=== PATIENT | female | born 1990 | race Caucasian/White ===

== ENCOUNTER 2020-11-16 07:35 | Outpatient (CLI) | payer OTHER, SELFPAY ==
[2020-11-16 09:24] LABS: Basophils Percent Auto 0.3 % (0.2-1.2); Eosinophils Absolute Auto 0.1 K/mm3 (0-0.3); Eosinophils Percent Auto 0.6 % (0-4.4); Hematocrit 31.9 % (37.0-47.0); Hemoglobin 10.7 g/dL (12.0-15.0); Immature Granulocyte Absolute 0.07 K/mm3 (0.00-0.031); Immature Granulocyte Percent A 0.6 % (0-0.5); Lymphocytes Absolute Auto 1.62 K/mm3 (0.9-3.2); Lymphocytes Percent Auto 13.5 % (18.3-44.2); Mean Corpuscular HGB Conc 33.5 g/dl (32-36); Mean Corpuscular Hemoglobin 30.4 pg (26-34); Mean Corpuscular Volume 90.6 fl (80-100); Mean Platelet Volume 9.8 fl (7.4-10.4); Monocytes Absolute Auto 0.7 K/mm3 (0.1-0.6); Monocytes Percent Auto 5.8 % (2.6-8.5); Neutrophils Absolute Auto 9.5 K/mm3 (1.3-6.7); Neutrophils Percent Auto 79.2 % (45.5-73.1); Platelet Count Result 247 k/mm3 (150-375); Red Blood Count 3.52 M/mm3 (4.2-5.4); Red Cell Distribution Width 13.6 % (11.5-14.5)
[2020-11-16 09:33] LABS: Glucose 1 Hour PP 50gm Dose 125 mg/dL
[2020-11-16 10:06] LABS: Thyroid Stimulating Hormone 0.825 uIU/mL (0.465-4.680)
[2020-11-16 10:14] LABS: Vitamin D 25 Hydroxy 30.8 ng/mL
[2020-11-20 01:30] LABS: Hematocrit 32.6 % (35.0-45.0); Hemoglobin 10.9 g/dL (11.7-15.5); MCH 30.2 pg (27.0-33.0); MCV 90.6 fL (80.0-100.0); RDW 14.2 % (11.0-15.0)
== END 2020-11-16 07:36 | disposition home or self-care (01) ==
PROVIDERS: Visit Provider Student in an Organized Health Care Education/Training Program
DX: Z34.90 Encounter for supervision of normal pregnancy, unspecified, unspecified trimester (principal); Z3A.00 Weeks of gestation of pregnancy not specified
CPT/HCPCS: 36415; 82306; 82947; 83021; 84443; 85025; 86787

== ENCOUNTER 2020-12-17 09:12 | Outpatient (CLI) | payer OTHER, SELFPAY ==
[2020-12-17 10:07] LABS: Basophils Percent Auto 0.2 % (0.2-1.2); Eosinophils Absolute Auto 0.1 K/mm3 (0-0.3); Eosinophils Percent Auto 0.5 % (0-4.4); Hematocrit 33.2 % (37.0-47.0); Hemoglobin 10.9 g/dL (12.0-15.0); Immature Granulocyte Absolute 0.08 K/mm3 (0.00-0.031); Immature Granulocyte Percent A 0.6 % (0-0.5); Lymphocytes Absolute Auto 1.94 K/mm3 (0.9-3.2); Lymphocytes Percent Auto 15.5 % (18.3-44.2); Mean Corpuscular HGB Conc 32.8 g/dl (32-36); Mean Corpuscular Hemoglobin 29.3 pg (26-34); Mean Corpuscular Volume 89.2 fl (80-100); Mean Platelet Volume 9.9 fl (7.4-10.4); Monocytes Absolute Auto 0.7 K/mm3 (0.1-0.6); Monocytes Percent Auto 5.4 % (2.6-8.5); Neutrophils Absolute Auto 9.7 K/mm3 (1.3-6.7); Neutrophils Percent Auto 77.8 % (45.5-73.1); Platelet Count Result 283 k/mm3 (150-375); Red Blood Count 3.72 M/mm3 (4.2-5.4); Red Cell Distribution Width 13.6 % (11.5-14.5); White Blood Count 12.5 K/mm3 (4.5-10.0)
[2020-12-17 11:10] LABS: HIV 1/2 Ab P24 Ag Result Negative (Negative)
[2020-12-17 15:19] LABS: Rapid Plasma Reagin Non-Reactive (NonReactive)
== END 2020-12-17 09:13 | disposition home or self-care (01) ==
LOC: ANHLAB 09:13
PROVIDERS: Visit Provider Student in an Organized Health Care Education/Training Program
DX: Z34.03 Encounter for supervision of normal first pregnancy, third trimester (principal); Z3A.00 Weeks of gestation of pregnancy not specified
CPT/HCPCS: 36415; 85025; 86592; 86703; G0432

== ENCOUNTER 2021-01-05 09:37 | Outpatient (RCR) | payer OTHER, SELFPAY ==
[2021-01-05 10:36] VITALS: BP 121/72; PULSE 72
== END 2021-02-25 09:37 | disposition home or self-care (01) ==
LOC: ANHOBOP 09:37
PROVIDERS: Visit Provider Student in an Organized Health Care Education/Training Program
DX: O36.8330 Maternal care for abnormalities of the fetal heart rate or rhythm, third trimester, not applicable or unspecified (principal); Z3A.36 36 weeks gestation of pregnancy
CPT/HCPCS: 59025

== ENCOUNTER 2021-01-13 05:45 | Inpatient (IN) | payer OTHER, SELFPAY ==
[2021-01-13] VITALS (185 sets, daily range): BP systolic 93–146; BP diastolic 41–97; PULSE 56–123; RESP 16–20; TEMP 36.6–37.4; O2SAT 92–100; BMI 29.1
--- NOTE | 2021-01-13 06:29 | LDADM ---
This patient, Joseline Dietrich, was admitted to Labor/Delivery/Recovery 105 on 01/13/21 at 05:45. Plans for labor, pain management and were discussed with patient. Patient/family oriented to hospital policies and general routines including ID bracelet, bed and alarms, visiting hours, pain management, procedures, bathroom and other care routines, personal items, smoking policy, room service/diet and guest tray routines, security routines, and visiting hours. Patient/Family are encouraged to report perceived risks to care and to ask questions if they do not understand what they are told or what they should do. See OBIX for further documentation.
[2021-01-13 06:42] LABS: Basophils Percent Auto 0.3 % (0.2-1.2); Eosinophils Absolute Auto 0.1 K/mm3 (0-0.3); Eosinophils Percent Auto 0.8 % (0-4.4); Hematocrit 34.4 % (37.0-47.0); Hemoglobin 11.3 g/dL (12.0-15.0); Immature Granulocyte Absolute 0.06 K/mm3 (0.00-0.031); Immature Granulocyte Percent A 0.5 % (0-0.5); Lymphocytes Percent Auto 15.9 % (18.3-44.2); Mean Corpuscular HGB Conc 32.8 g/dl (32-36); Mean Corpuscular Volume 88.4 fl (80-100); Mean Platelet Volume 10.2 fl (7.4-10.4); Monocytes Absolute Auto 0.6 K/mm3 (0.1-0.6); Monocytes Percent Auto 4.8 % (2.6-8.5); Neutrophils Absolute Auto 9.8 K/mm3 (1.3-6.7); Neutrophils Percent Auto 77.7 % (45.5-73.1); Platelet Count Result 292 k/mm3 (150-375); Red Blood Count 3.89 M/mm3 (4.2-5.4); Red Cell Distribution Width 13.2 % (11.5-14.5); White Blood Count 12.6 K/mm3 (4.5-10.0)
[2021-01-13] MEDS: OXYTOCIN 30 UNITS/NS 500 ML 30 UNITS/500 ML BAG 6 UNITS IV CONT (09:00)
[2021-01-13] MEDS: LACTATED RINGERS 1,000 ML 125 ML IV CONT ×2 (09:00→20:19)
--- NOTE | 2021-01-13 09:56 | WPDANESEPP ---
Anes - Eval Pre Procedure Procedure: Labor Pain Management Date/Time: 01/13/21 09:56 Surgeon: Henok Preop Diagnosis: Pain during labor Pre Op Diagnosis: leaking Patient Data Age: 30 Gender: F Height: 1.55 m Weight: 70 kg Last Vital Signs Temp 98 F 01/13/21 08:30 Pulse 61 01/13/21 09:45 BP 129/66 01/13/21 09:45 Allergies Allergy/AdvReac Type Severity Reaction Status Date / Time No Known Allergies Allergy Verified 01/04/21 14:34 Home Medications Medication Instructions Recorded Confirmed Type vitamins no.119-iron 1 tablet PO DAILY 09/17/20 01/13/21 History fumarate 29 mg-folic acid 1 mg tablet Laboratory Tests 01/13/21 01/13/21 01/13/21 06:26 06:26 06:26 WBC 12.6 K/mm3 H K/mm3 (4.5-10.0) RBC 3.89 M/mm3 L M/mm3 (4.2-5.4) Hgb 11.3 g/dL L g/dL (12.0-15.0) Hct 34.4 % L % (37.0-47.0) MCV 88.4 fl fl (80-100) MCH 29.0 pg pg (26-34) MCHC 32.8 g/dl g/dl (32-36) RDW 13.2 % % (11.5-14.5) Plt Count 292 k/mm3 k/mm3 (150-375) MPV 10.2 fl fl (7.4-10.4) Immature Gran % (Auto) 0.5 % % (0-0.5) Neut % (Auto) 77.7 % H % (45.5-73.1) Lymph % (Auto) 15.9 % L % (18.3-44.2) [place] % (Auto) 4.8 % % (2.6-8.5) Eos % (Auto) 0.8 % % (0-4.4) Baso % (Auto) 0.3 % % (0.2-1.2) Lymph # (Auto) 2.00 K/mm3 K/mm3 (0.9-3.2) [place] # (Auto) 0.6 K/mm3 K/mm3 (0.1-0.6) Eos # (Auto) 0.1 K/mm3 K/mm3 (0-0.3) Baso # (Auto) 0.0 K/mm3 K/mm3 (0.0-0.1) Abs Immat Gran (auto) 0.06 K/mm3 H K/mm3 (0.00-0.031) Absolute Neuts (auto) 9.8 K/mm3 H K/mm3 (1.3-6.7) Absolute Nucleated RBC 0.0 K/mm3 K/mm3 (0.0-0.012) Nucleated RBC % 0.0 % % (0.0-0.2) RPR Pending Blood Type O Positive Antibody Screen Negative : gestational age (EDC 01/27/21) Patient hx anesthesia problems: none Family hx anesthesia problems: none Prior surgeries: wisdom teeth Results Review: All pre-operative results and documents have been reviewed as part of the pre-operative evaluation. [facility] Past Medical History Medical History Anxiety History of kidney infection during Surgical History Surgical History [place] teeth removed Family History Family History Grandparent Diabetes mellitus Social History Social History Smoking status: Current every day smoker Tobacco type: cigarettes Second hand tobacco smoke exposure: No Alcohol intake: never Substance use: former Spiritual care concerns: No Exam Day of Procedure 01/13/21 09:56
[2021-01-13 10:37] LABS: Rapid Plasma Reagin Non-Reactive (NonReactive)
--- NOTE | 2021-01-13 10:50 | PM.IMHP ---
H&P: HPI History of Present Illness Date/Time: 01/13/21 10:50 Patient is a LMP uncertain currently 37w6d gestation with TEENA 01/28/21 who presented to L&D with complaints of leakage of fluid. Patient is dated by an outside US and transferred care during . She reported leakage of fluid earlier this morning. Reported possible onset of contractions prior to large pop, but definitely reports development of contractions afterwards. Denies any vaginal bleeding. Reports good movement. Upon arrival to L&D, patient was noted to be grossly ruptured with irregular contractions. Decision made to admit patient to L&D. Chief Complaint: Intrauterine at 37w6d PROM Two vessel umbilical cord Review of Systems Review of Systems: All systems reviewed & are unremarkable except as noted in HPI and below Constitutional: Constitutional: Reports as per HPI, Reports no additional constitutional complaints, Denies chills, Denies fever(s), Denies headache(s) and Denies night sweats Eyes: Eyes: Reports as per HPI and Reports no additional eye complaints ENT: Reports system reviewed and no additional complaints, except as documented, Reports as per HPI, Reports Normal hearing present and Denies headache(s) Cardiovascular: Cardiovascular: Reports as per HPI, Reports no additional cardiovascular complaints, Denies chest pain and Denies dyspnea Respiratory: Respiratory: Reports as per HPI, Reports no additional respiratory complaints, Denies cough and Denies dyspnea Gastrointestinal: Gastrointestinal: Reports as per HPI, Reports no additional gastrointestinal complaints, Denies abdominal pain, Denies change in bowel habits, Denies change in stool character, Denies nausea and Denies vomiting Genitourinary: Genitourinary: Reports no additional female genitourinary complaints, Reports as per HPI, Denies abnormal vaginal bleeding, Denies genital lesions, Denies hot flashes, Denies dyspareunia, Denies pelvic pain, Denies sexual dysfunction, Denies urinary incontinence, Denies vaginal discharge, Denies vaginal dryness and Denies vaginal odor Musculoskeletal: Musculoskeletal: Reports no additional musculoskeletal complaints and Reports as per HPI Integumentary/Breasts: Skin/Breast: Reports system reviewed and no additional complaints, except as docu, Reports as per HPI, Denies breast pain and Denies nipple discharge Neurologic: Reports system reviewed and no additional complaints, except as documented, Reports as per HPI, Reports Normal hearing present and Denies headache(s) Psychiatric: Psychiatric: Reports no additional psychiatric complaints, Reports as per HPI, Denies anxiety and Denies depression Endocrine: Endocrine: Reports no additional endocrine complaints and Reports as per HPI Hematologic/Lymphatic: Hematologic/Lymphatic: Reports no additional hematologic/lymphatic complaints and Reports as per HPI Allergic/Immunologic: Allergic/Immunologic: Reports no additional allergic/immunologic complaints and Reports as per HPI PMFSH Past Medical History Medical History Anxiety History of kidney infection during Surgical History Surgical History [place] teeth removed Family History Family History Grandparent Diabetes mellitus Social History Social History Smoking status: Current every day smoker Tobacco type: cigarettes Second hand tobacco smoke exposure: No Alcohol intake: never Substance use: former Spiritual care concerns: No Meds Home Medications and Allergies Home Medications Medication Instructions Recorded Confirmed Type vitamins no.119-iron 1 tablet PO DAILY 09/17/20 01/13/21 History fumarate 29 mg-folic acid 1 mg tablet Allergies Allergy/AdvReac Type Severity React
--- NOTE | 2021-01-13 17:04 | WPDHPUPDATE1 ---
History and Physical Update Update Date/Time: 01/13/21 17:04 History and Physical has been reviewed, including an updated exam of the patient. There are NO changes in the patient's condition. Risks, benefits, and alternatives have been discussed and questions answered. Patient agrees to proceed with procedure.
[2021-01-13] MEDS: SODIUM CHLORIDE 0.9% IV 300 ML 600 ML I-UTERINE (18:45)
[2021-01-13] MEDS: SODIUM CHLORIDE 0.9% IV 1,000 ML 150 ML I-UTERINE (19:15)
--- NOTE | 2021-01-13 22:01 | PM.OBPNLAB ---
Pain Control Date/time seen: 01/13/21 22:01 Called by RN. Notified of late decelerations on EFM. Patient evaluated at bedside. Patient was previously 4-5cm dilated and has not made further cervical change due to intermittent NRFHT and inability to titrate pitocin. EFM previously showed early and variable decelerations. IUPC was placed earlier for enhanced monitoring. Amnioinfusion was started and tracing improved, however, subsequently showed recurrent late decelerations. Pitocin was discontinued and tracing recovered. Patient 5.5cm dilated. In light of NRFHT remote from delivery in addition to history of single umbilical artery, decision made to proceed with section. Situation discussed with patient and partner. Risks and benefits discussed. Patient implied an understanding and agrees with plan. All questions and concerns addressed.
[2021-01-13] MEDS: ceFAZolin 2 GM/D5W 50 ML 2 GM/50 ML BAG IVPB (22:25)
--- NOTE | 2021-01-13 23:22 | W.PM.PROC2 ---
Procedure Note - Detailed Date of Procedure 01/13/21 Pre-op Diagnosis Intrauterine at 38w6d gestation Nonreassuring heart tracing Post-op Diagnosis same Procedure Performed Primary low transverse section via Pfannenstiel Surgeon Yadi Whiting MD Brake Machine Operator Kayley Schmidt Anesthesia epidural Findings Live female in occiput transverse presentation with moderate caput, apgars 8/9, weighing 6 lbs. 6 oz, normal appearing uterus, ovaries, and fallopian tubes bilaterally Description of Procedure The patient was taken to the operating room, where she was transferred to the operating room table. She was placed in dorsal supine position with a leftward tilt. She was prepped and draped in the usual sterile fashion. Epidural was tested and found to be adequate. A Pfannenstiel skin incision was made with a scalpel and carried through to underlying layer of fascia with the Bovie. The fascia was incised in the midline and the incision was extended laterally with the use of forceps and Hernandez scissors. The inferior aspect of the fascial incision was grasped with Yevgeniy clamps, elevated, and the underlying rectus muscle were dissected off with Hernandez scissors. Attention was then turned to the superior aspect of the fascial incision, which in a similar manner, was grasped with Yevgeniy clamps, elevated, and the underlying rectus muscles were also dissected off with Hernandez scissors. The rectus muscles were in the midline and the peritoneal cavity was entered bluntly. This incision was extended superiorly and inferiorly with good visualization of the bladder and care was taken to avoid blood vessels. A bladder blade was inserted. The vesicouterine peritoneum was identified and incised sharply with Metzenbaum scissors. This incision was extended laterally with Metzenbaum scissors and a bladder flap was created digitally. The bladder blade was replaced. A low-transverse uterine incision was made with a scalpel. This incision was extended laterally with bandage scissors. Clear amniotic fluid was noted. The 's head was found to be in OT presentation and was grasped and gently guided to the level of the uterine incision. The 's head was delivered easily and atraumatically without difficulty followed by the neck, shoulders, and rest of body with gentle fundal pressure. Terminal meconium was noted. The infant's nose and mouth were suctioned with bulb suction. The cord was clamped and cut and the was handed off to waiting nursing staff. A segment of cord was collected for cord gases. Cord blood was also collected. The placenta was then delivered manually with gentle uterine massage. Uterus was exteriorized and cleared of all clots and debris. The uterine incision was reapproximated with 0 Vicryl in a running, locked fashion. A second imbricating layer using 0 Monocryl performed. Excellent hemostasis was noted. On inspection, the uterus, ovaries, and fallopian tubes appeared to be normal bilaterally. The uterus was replaced into the abdominal cavity. The gutters were cleared of all clots and debris. The uterine incision was inspected again and noted to be hemostatic. Interceed was applied across the uterine incision and anterior surface of the uterus. The peritoneum was reapproximated with 2-0 Monocryl. The fascia was then closed with 0 Vicryl in a running fashion. The subcutaneous layer was irrigated with water. Pinpoint areas of bleeding were made hemostatic with Bovie. The subcutaneous layer was reapproximated with 2-0 plain and the skin was then closed with Insorb karrie. The skin was cleansed and dried. Dermaflex skin adhesive was applied across the incision. The remainder of the patient was cleansed and dried. The patient was transferred to the recovery room in stable condition. All sponge, lap, and instrument counts were correct at the end of the procedure x3. The patient tolerated the procedure well. Estimated Blood Loss 235 IV Fluids 1,200
--- NOTE | 2021-01-13 23:32 | PM.OBPRVD ---
OB - Delivery Note Procedure Delivery date: 01/13/21 Procedure: Procedures Operation Date: 01/13/21 22:15 <No data on this case meets the specified criteria> events: Premature Rupture of Membrane Intrapartal events: Intolerance Induction method: per pitocin protocol Delivery monitor: external FHT, external uterine and internal uterine Route of delivery: Specimen: Yes (placenta and cord, cord blood, and cord gases) Quantitative Blood Loss (ml): 235 Anesthesia type: Epidural Disposition: PACU Complications: No immediate complications Baby Date of : 01/13/21 Time of : 22:47 Weeks of gestation at delivery: 38 (38.6) gender: Female Weight (pounds): 6 Weight (ounces): 6 presentation: transverse position: Transverse Placenta delivery description: Manual Removal cord vessel description: 2 Vessels and Clamped/Cut score one minute: 8 score five minutes: 9
[2021-01-13] MEDS: MORPHINE SULFATE INJ (*CRX) 10 MG/ML AMP 2 MG IV PUSH (23:35)
[2021-01-14] VITALS (39 sets, daily range): BP systolic 88–162; BP diastolic 44–88; PULSE 56–116; RESP 16–20; TEMP 36.6–37.2; O2SAT 90–100
[2021-01-14] MEDS: OXYTOCIN 30 UNITS/NS 500 ML 30 UNITS/500 ML BAG 125 UNITS IV CONT (01:30)
[2021-01-14] MEDS: IBUPROFEN IV 800 MG/200 ML 800 MG/200 ML BAG 400 MG IVPB ×3 (02:59→14:43)
--- NOTE | 2021-01-14 03:04 | PC.NURSE ---
Patient transferred to post room #288 via stretcher. Support person present. Oriented to unit, room, information board, rooming in, admission packet and security measures. Patient verbalizes understanding.
[2021-01-14] MEDS: DEXTROSE 5%/0.45% SOD CHL 1,000 ML 125 ML IV CONT (05:29)
[2021-01-14 05:36] LABS: Basophils Percent Auto 0.3 % (0.2-1.2); Eosinophils Percent Auto 0.1 % (0-4.4); Hematocrit 28.4 % (37.0-47.0); Hemoglobin 9.3 g/dL (12.0-15.0); Immature Granulocyte Percent A 0.7 % (0-0.5); Lymphocytes Absolute Auto 1.68 K/mm3 (0.9-3.2); Lymphocytes Percent Auto 10.9 % (18.3-44.2); Mean Corpuscular HGB Conc 32.7 g/dl (32-36); Mean Corpuscular Volume 88.5 fl (80-100); Mean Platelet Volume 10.2 fl (7.4-10.4); Monocytes Absolute Auto 0.9 K/mm3 (0.1-0.6); Monocytes Percent Auto 5.9 % (2.6-8.5); Neutrophils Absolute Auto 12.6 K/mm3 (1.3-6.7); Neutrophils Percent Auto 82.1 % (45.5-73.1); Platelet Count Result 228 k/mm3 (150-375); Red Blood Count 3.21 M/mm3 (4.2-5.4); Red Cell Distribution Width 13.1 % (11.5-14.5); White Blood Count 15.4 K/mm3 (4.5-10.0)
[2021-01-14] MEDS: POLYSACCHARIDE IRON COMPLEX 150 MG CAPSULE PO ×2 (09:04→17:26)
[2021-01-14] MEDS: DOCUSATE SODIUM 100 MG CAPSULE PO ×2 (09:04→17:26)
--- NOTE | 2021-01-14 09:42 | P.PNOB_ITS ---
OB - PN: Subj Subjective Date/time seen: 01/14/21 09:42 Patient doing well this AM. Pain reasonably controlled with medication. Denies any headache, chest pain, SOB, N/V. Awaiting breakfast tray. Sanchez catheter in place. Limited ambulation. Currently sitting in chair. No flatus yet. OB - PN: Obj Data Labs CBC & Chem 7: 01/14/21 05:25 Labs: Laboratory Results - last 24 hr 01/13/21 01/14/21 06:26 05:25 WBC 15.4 H RBC 3.21 L Hgb 9.3 L Hct 28.4 L MCV 88.5 MCH 29.0 MCHC 32.7 RDW 13.1 Plt Count 228 MPV 10.2 Immature Gran % (Auto) 0.7 H Neut % (Auto) 82.1 H Lymph % (Auto) 10.9 L [place] % (Auto) 5.9 Eos % (Auto) 0.1 Baso % (Auto) 0.3 Lymph # (Auto) 1.68 [place] # (Auto) 0.9 H Eos # (Auto) 0.0 Baso # (Auto) 0.0 Abs Immat Gran (auto) 0.10 H Absolute Neuts (auto) 12.6 H Absolute Nucleated RBC 0.0 Nucleated RBC % 0.0 RPR Non-reactive OB - PN A/P Assessment and Plan (1) delivery delivered: Code(s): O82 - Encounter for delivery without indication Status: Acute Assessment and Plan: POD#1 doing well continue routine postoperative care encourage ambulation and use of IS dc sanchez this AM advance diet as tolerated Time Spent With Patient Time: Total time spent is greater than 50% in coordination of care (as documented) at patient's floor/unit and/or counseling patient: Exam Const: General: cooperative, healthy appearing, comfortable and no acute distress GI: Inspection: non-distended GI Palp: Yes Soft to palpation and No Tenderness to palpation present (GI) Other: inc c/d/i Extrem: Right lower extremity: no edema Left lower extremity: no edema Other: no calf tenderness
--- NOTE | 2021-01-14 12:49 | WPDANLDPN2 ---
Anes-Prog Note L&D Date/Time: 01/14/21 12:49 Comfortable throughout: labor and delivery Neuraxial method: epidural Epidural/Spinal procedure site: clean & non-tender Neuro status: Neuro function grossly intact. Cardiovascular status: normal Respiratory status: normal Airway patency: baseline Mental status: baseline Post-Op hydration status: normal Vital Signs: Last Vital Signs Temp 98.2 F 01/14/21 08:15 Pulse 71 01/14/21 08:15 Resp 18 01/14/21 08:15 BP 103/46 L 01/14/21 08:15 Pulse Ox 98 01/14/21 08:15 Pain score (VAS): 0 I/O: Intake & Output 01/13/21 01/14/21 01/14/21 23:59 07:59 15:59 Intake Total 2250 440 Output Total 385 2216 275 Balance 1865 -1986 -275 Post-procedural complaints: pruritis mild, no treatment Patient feedback: Patient satisfied with anesthetic care.
--- NOTE | 2021-01-14 12:50 | WPDANLDNPN2 ---
Anes-Prog Note L&D-Neuraxial Date/Time: 01/14/21 12:50 Neuraxial medications: intrathecal PF morphine Opiod-related complaints: pruritis mild, no treatment Patient feedback: Patient satisfied with post-operative pain management.
[2021-01-14] MEDS: KCL 20 MEQ/D5/0.45% SOD CHL 1,000 ML 125 ML IV CONT (13:19)
[2021-01-14] MEDS: HYDROcodone/acetaminophen (*CRX) 10-325 MG TABLET 1 TAB PO (15:45)
[2021-01-14] MEDS: HYDROcodone/acetaminophen (*CRX) 5-325 MG TABLET 1 TAB PO (21:38)
[2021-01-14] MEDS: IBUPROFEN 600 MG TABLET PO (21:38)
[2021-01-15] MEDS: IBUPROFEN 600 MG TABLET PO (05:20)
[2021-01-15 08:15] VITALS: BP 107/44; PULSE 63; RESP 16; TEMP 36.9; O2SAT 97
[2021-01-15] MEDS: MULTIVIT/MIN/PREN/FOL AC/IRON TABLET 1 TAB PO (08:23)
[2021-01-15] MEDS: DOCUSATE SODIUM 100 MG CAPSULE PO (08:23)
[2021-01-15] MEDS: POLYSACCHARIDE IRON COMPLEX 150 MG CAPSULE PO (08:23)
[2021-01-15] MEDS: ACETAMINOPHEN 325 MG TABLET 650 MG PO (08:25)
--- NOTE | 2021-01-15 11:18 | PM.OBPNVD ---
OB - PN: Subj Subjective Date/time seen: 01/15/21 11:18 Patient doing well. Pain well controlled with medication. Denies any headache, chest pain, SOB, N/V. Tolerating PO diet. Ambulating without difficulty. Voiding well. +flatus. OB - PN: Obj Data Labs CBC & Chem 7: 01/14/21 05:25 OB - PN A/P Assessment and Plan (1) delivery delivered: Code(s): O82 - Encounter for delivery without indication Status: Acute Assessment and Plan: POD#2 doing well continue routine postoperative care pain management PRN encourage ambulation and use of IS pt requesting dc home today if cleared emergency precautions reviewed f/u in office in 2 weeks Time Spent With Patient Time: Total time spent is greater than 50% in coordination of care (as documented) at patient's floor/unit and/or counseling patient: Exam Const: General: cooperative, healthy appearing, comfortable and no acute distress GI: Inspection: non-distended GI Palp: No abdominal tenderness and Yes Soft to palpation Other: inc c/d/i Extrem: Right lower extremity: no edema Left lower extremity: no edema Other: no calf tenderness
--- NOTE | 2021-01-15 11:54 | P.DS_ITS ---
DS: Admitting Diagnosis Discharge Date 01/15/21 Admitting Diagnosis PROM OB - DS: Summary OB Procedures : None OB Procedures Intrapartum: OB Procedures: : None Peripartum Data Procedures: Procedures Operation Date: 01/13/21 22:15 Actual Procedure Side Surgeon p Section Yadi Whiting MD Time Spent with Patient Time attestation: Total time spent providing and/or coordinating discharge services: DS: Data Data Completed and Pending Pending studies at discharge: Pending at discharge 01/13/21 23:49 Surgical [PTH] Routine Discharge Plan Discharge Attending physician on discharge: Yadi Whiting Discharging Clinician: Yadi Whiting Anticipated Discharge Date/Time: 01/15/21 11:54 Patient Disposition: Home, Self-Care Activity: as tolerated and pelvic rest Diet: regular Discharge Instructions: Call office ([phone]) to schedule the following appointments: 1. Postoperative/wound check in 2 weeks. 2. visit in 4-6 weeks. You may take Ibuprofen 600mg every 6 hours as needed for pain. You may also alternate with Tylenol 1000mg (two extra strength tabs) every 6 hours. I have sent a prescription for a stronger pain medication, [place], to your pharmacy. You may take this as prescribed for breakthrough pain (pain that is not controlled with Ibuprofen). HOWEVER, do not take this medication if you are taking Tylenol as this medication has Tylenol in it. No driving for at least two weeks. You also may not drive while taking narcotics. Pain medication may make you constipated. It may be helpful to take an xfys-ekw-hwycjqu stool softener, such as Colace and/or Senokot, along with the pain medication to help lessen constipation. Call office or go to ED for pain not controlled with medication, headache, chest pain, shortness of breath, fever, chills, persistent nausea or vomiting, severe abdominal pain, heavy vaginal bleeding >2 pads/hour, foul vaginal discharge or odor, any redness near incision, severe pain, pus or drainage from incision site, or problems with your breasts. Patient Instructions: Antibiotic Form, How to Stop Smoking (GEN), Cigarette Smoking and Your Health (GEN) Stand Alone Forms: General Discharge Information Follow-up/Referrals: Yadi Whiting MD [Physician] - Discharge Medications: New hydrocodone-acetaminophen 5-325 mg Tablet 1 - 2 tablet PO Q4-6H PRN (Reason: Moderate Pain (4-6)) Qty: 20 RF: 0 Continued PNV 119-iron fum-folic acid 29 mg iron- 1 mg tablet 1 tablet PO DAILY RF: 0 Date of admission: 01/13/21 05:45 Primary Care Provider: PHYSICIAN,INSOLE AND OUTSOLE SPLITTER Admitting Provider: Yadi Whiting Attending physician on admission: Yadi Whiting Condition: Stable
[2021-01-15] MEDS: MEASLES,MUMPS,RUBELLA VACCINE 0.5 ML VIAL SUB-Q (12:13)
--- NOTE | 2021-01-15 13:50 | PC.NURSE ---
Patient instructed on viewing the discharge video Mother & Baby Care, The First Two Weeks . Patient was given the opportunity and encouraged to ask questions. Patient verbalized understanding of information shared and has been given the mother/baby guide for home reference.
[2021-01-18 11:25] VITALS: BP 136/68; PULSE 60; RESP 20; TEMP 36.9; O2SAT 100
== END 2021-01-15 14:11 | disposition home or self-care (01) | DRG 540 ==
LOC: ANHLDR 06:31 → ANHOB2 01-14 02:07
PROVIDERS: Admitting Provider Student in an Organized Health Care Education/Training Program; Visit Provider Student in an Organized Health Care Education/Training Program
PROC: 10D00Z1 Extraction of Products of Conception, Low, Open Approach (ICD-10-PCS; CPT 59514; principal; 2021-01-13 22:15)
DX: O42.92 Full-term premature rupture of membranes, unspecified as to length of time between rupture and onset of labor (principal); O69.89X0 Labor and delivery complicated by other cord complications, not applicable or unspecified; O99.334 Smoking (tobacco) complicating childbirth; F17.210 Nicotine dependence, cigarettes, uncomplicated; O76 Abnormality in fetal heart rate and rhythm complicating labor and delivery; O77.0 Labor and delivery complicated by meconium in amniotic fluid; Z3A.37 37 weeks gestation of pregnancy; Z37.0 Single live birth
CPT/HCPCS: 36415; 85025; 86592; 86850; 86900; 86901; 88307; 90710; A9270; J0131; J0690; J1200; J1741; J2250; J2270; J2274; J2370; J2405; J2590; J2795; J3010; J3480; J7030; J7120

== ENCOUNTER 2022-03-04 15:01 | Outpatient (CLI) | payer OTHER, SELFPAY ==
--- NOTE | ~2022-03-04 | US_ITS ---
EXAMINATION: US OB <= 14 weeks fetus DATE: 03/04/2022 15:36 INDICATION: First trimester with inconclusive viability TECHNIQUE: Real-time pelvic ultrasound utilizing both a transvaginal and transabdominal probe was pe rformed. The interpreting radiologist was not present for the study. COMPARISON: None. FINDINGS: The uterus measures 8.3 x 5.0 x 5.7 cm. There is an intrauterine gestational sac. A yolk sac and fet al pole are identified. The crown rump length measures 1.2 cm, which correlates with an estimated ges tational age of 7 weeks and 2 days. heart motion is identified measuring 146 beats per minute ( bpm) by M-mode Doppler. The right ovary measures 2.3 x 1.6 x 2.1 cm. The left ovary measures 2.8 x 2.4 x 2.2 cm. 1.2 cm anech oic likely corpus luteum cyst in the left ovary. Osteophytes identified at both ovaries on color Dopp ler. There is no free fluid in the pelvis. IMPRESSION: 1. Single living fetus with heart rate of 146 bpm. 2. Gestational age by ultrasound of 7 weeks 2 day(s) +/- 5 day(s) with ultrasound estimated date of delivery (TEENA) of 10/19/2022. Reviewed, dictated and finalized at location A. [facility] IMPRESSION: 1. Single living fetus with heart rate of 146 bpm. 2. Gestational age by ultrasound of 7 weeks 2 day(s) +/- 5 day(s) with ultraso und estimated date of delivery (TEENA) of 10/19/2022.
== END 2022-03-04 15:02 | disposition home or self-care (01) ==
PROVIDERS: Visit Provider Obstetrics & Gynecology
DX: O36.80X0 Pregnancy with inconclusive fetal viability, not applicable or unspecified (principal); Z3A.01 Less than 8 weeks gestation of pregnancy
CPT/HCPCS: 76801

== ENCOUNTER 2022-07-22 11:37 | Outpatient (CLI) | payer OTHER, SELFPAY ==
[2022-07-22 13:08] LABS: Basophils Percent Auto 0.2 % (0.2-1.2); Eosinophils Absolute Auto 0.1 K/mm3 (0-0.3); Eosinophils Percent Auto 0.5 % (0-4.4); Hematocrit 33.5 % (37.0-47.0); Hemoglobin 10.9 g/dL (12.0-15.0); Immature Granulocyte Absolute 0.04 K/mm3 (0.00-0.031); Immature Granulocyte Percent A 0.4 % (0-0.5); Lymphocytes Percent Auto 18.1 % (18.3-44.2); Mean Corpuscular HGB Conc 32.5 g/dl (32-36); Mean Corpuscular Hemoglobin 29.5 pg (26-34); Mean Corpuscular Volume 90.5 fl (80-100); Mean Platelet Volume 9.9 fl (7.4-10.4); Monocytes Absolute Auto 0.4 K/mm3 (0.1-0.6); Neutrophils Absolute Auto 7.6 K/mm3 (1.3-6.7); Neutrophils Percent Auto 76.8 % (45.5-73.1); Platelet Count Result 220 k/mm3 (150-375); Red Cell Distribution Width 13.3 % (11.5-14.5); White Blood Count 9.9 K/mm3 (4.5-10.0)
[2022-07-22 13:25] LABS: Glucose 1 Hour PP 50gm Dose 104 mg/dL
== END 2022-07-22 11:38 | disposition home or self-care (01) ==
LOC: ANHLAB 11:39
PROVIDERS: Visit Provider Registered Nurse
DX: Z34.90 Encounter for supervision of normal pregnancy, unspecified, unspecified trimester (principal); Z3A.00 Weeks of gestation of pregnancy not specified
CPT/HCPCS: 36415; 82947; 85025

== ENCOUNTER 2022-08-23 12:38 | Observation (INO) | payer OTHER, SELFPAY ==
[2022-08-23 13:21] LABS: Appearance Urine Cloudy (Clear); Bacteria Urine None Seen /hpf; Bilirubin Urine Negative (Negative); Color Urine Yellow (Yellow); Glucose Urine UA Negative (Negative); Ketones Urine Negative (Negative); Leukocyte Esterase Ur Negative LEU/UL (Negative); Nitrate Urine Negative (Negative); Non Pathogenic Casts 0-2; Protein Urine Negative (Negative); Specific Grav Ur 1.014 (1.001-1.035); Squamous Epithelial Cell Urine Occasional /hpf (Few); WBC Urine 0-5 /hpf
[2022-08-23 13:29] LABS: Add Urine Microscopic? YES
[2022-08-23 13:32] VITALS: BP 119/65; PULSE 69; RESP 16; TEMP 36.7
[2022-08-23 13:33] VITALS: BMI 27.6
--- NOTE | 2022-08-23 13:33 | OBADM ---
This patient, Joseline Dietrich, admitted to the OB room 113 for observation. Patient/family oriented to hospital policies and general routines including ID bracelet, bed and alarms, visiting hours, pain management, procedures, bathroom and other care routines, personal items, smoking policy, room service/diet, and visiting hours. Patient/Family are encouraged to report perceived risks to care and to ask questions if they do not understand what they are told or what they should do.
[2022-08-23 13:51] VITALS: BP 121/61; PULSE 68
[2022-08-23] MEDS: TERBUTALINE SULFATE 1 MG/ML VIAL 0.25 MG SUB-Q (13:52)
[2022-08-23 15:00] VITALS: BP 126/56; PULSE 80; RESP 18; TEMP 37.2
[2022-08-23 15:38] VITALS: BP 126/57; PULSE 83
[2022-08-23] MEDS: NIFEdipine 10 MG CAPSULE PO (15:38)
[2022-08-23 16:00] VITALS: BP 131/67; PULSE 92
[2022-08-23 17:00] VITALS: BP 110/45; PULSE 74
--- NOTE | 2022-09-12 11:29 | P.PNOB_ITS ---
OB - Triage/Final Diagnosis Visit Information Comments/Additional reasons for admission: I have assessed the risk for this patient, Joseline Dietrich, and determined that she would benefit from observation care. Evaluation Laboratory results: Laboratory Tests 08/23/22 13:08 Urine Color Yellow Urine Appearance Cloudy H Urine pH 7.0 Ur Specific [place] 1.014 Urine Protein Negative Urine Glucose (UA) Negative Urine Ketones Negative Ur Blood (Man) Non-hemolyzed trace Urine Nitrate Negative Urine Bilirubin Negative Urine Urobilinogen 1.0 Leukocyte Esterase Rfl Negative Urine RBC 3-5 H Urine WBC 0-5 Ur Squamous Epith Cells Occasional Urine Bacteria None seen Urine Casts 0-2 Final Diagnosis (1) contractions: Code(s): O47.00 - False labor before 37 completed weeks of gestation, unspecified trimester Status: Acute
== END 2022-08-23 17:48 | disposition home or self-care (01) ==
PROVIDERS: Admitting Provider Obstetrics & Gynecology; Visit Provider Obstetrics & Gynecology
DX: O47.03 False labor before 37 completed weeks of gestation, third trimester (principal); Z3A.31 31 weeks gestation of pregnancy
CPT/HCPCS: 81001; 96372; A9270; G0378; G0379; J3105

== ENCOUNTER 2022-09-05 12:36 | Outpatient (CLI) | payer OTHER, SELFPAY ==
[2022-09-05 13:17] LABS: Basophils Percent Auto 0.3 % (0.2-1.2); Eosinophils Absolute Auto 0.1 K/mm3 (0-0.3); Eosinophils Percent Auto 0.5 % (0-4.4); Hematocrit 33.4 % (37.0-47.0); Hemoglobin 10.9 g/dL (12.0-15.0); Immature Granulocyte Absolute 0.08 K/mm3 (0.00-0.031); Immature Granulocyte Percent A 0.6 % (0-0.5); Lymphocytes Absolute Auto 2.05 K/mm3 (0.9-3.2); Lymphocytes Percent Auto 16.1 % (18.3-44.2); Mean Corpuscular HGB Conc 32.6 g/dl (32-36); Mean Corpuscular Hemoglobin 28.9 pg (26-34); Mean Corpuscular Volume 88.6 fl (80-100); Mean Platelet Volume 10.1 fl (7.4-10.4); Monocytes Absolute Auto 0.5 K/mm3 (0.1-0.6); Monocytes Percent Auto 4.2 % (2.6-8.5); Neutrophils Percent Auto 78.3 % (45.5-73.1); Platelet Count Result 284 k/mm3 (150-375); Red Blood Count 3.77 M/mm3 (4.2-5.4); Red Cell Distribution Width 13.4 % (11.5-14.5); White Blood Count 12.7 K/mm3 (4.5-10.0)
[2022-09-05 13:51] LABS: Rapid Plasma Reagin Non-Reactive (NonReactive)
[2022-09-05 14:08] LABS: HIV 1/2 Ab P24 Ag Result Negative (Negative)
== END 2022-09-05 12:37 | disposition home or self-care (01) ==
PROVIDERS: Visit Provider Obstetrics & Gynecology
DX: Z34.90 Encounter for supervision of normal pregnancy, unspecified, unspecified trimester (principal); Z3A.00 Weeks of gestation of pregnancy not specified
CPT/HCPCS: 36415; 85025; 86592; 86703; G0432

== ENCOUNTER 2022-09-17 20:15 | Observation (INO) | payer OTHER, SELFPAY ==
[2022-09-17] MEDS: NIFEdipine 10 MG CAPSULE PO (23:00)
[2022-09-17 23:48] VITALS: BMI 27.3
[2022-09-18 01:29] VITALS: PULSE 76; O2SAT 98
[2022-09-18 01:31] VITALS: BP 108/56; PULSE 79
[2022-09-18] MEDS: NIFEdipine 10 MG CAPSULE 20 MG PO (05:00)
--- NOTE | 2022-09-18 07:55 | PM.OBTRLD ---
OB - Triage/Final Diagnosis Visit Information Date of evaluation: 09/18/22 Reason for evaluation: threatened labor and other (vaginal bleeding) Comments/Additional reasons for admission: I have assessed the risk for this patient, Joseline Dietrich, and determined that she would benefit from observation care. Evaluation Baseline heart rate: 140 Variability: Moderate (11-25) monitor accelerations: Present monitor decelerations: None Cervical dilation (cm): 0 Cervical effacement (%): 0 station: -3 Vital signs: Vital Signs - 24 hr 09/18/22 01:29 09/18/22 01:31 Pulse Rate 79 Blood Pressure 108/56 L Pulse Oximetry 98 Comments: Patient has been on bedrest and taking procardia PRN. Had contractions since 11 am 09/17 but did not take procardia or come to labor until late last pm. Procardia 20 mg required to stop contractions. Had episode of BRB with clot so kept overnight. No further bleeding. Was planning steroids but patient stated she did same thing 3 weeks ago and went to [facility] and received steroids then. Rec. dc home on bedrest and procardia 20 mg q 6 hours until at least 36 weeks. Pelvic rest. Keep regularly scheduled appointment with Dr. Dozier.
== END 2022-09-18 08:34 | disposition home or self-care (01) ==
PROVIDERS: Admitting Provider Obstetrics & Gynecology Gynecology; Visit Provider Obstetrics & Gynecology Gynecology
DX: O47.03 False labor before 37 completed weeks of gestation, third trimester (principal); O46.93 Antepartum hemorrhage, unspecified, third trimester; Z3A.35 35 weeks gestation of pregnancy
CPT/HCPCS: A9270; G0378; G0379

== ENCOUNTER 2022-09-26 09:29 | Outpatient (RCR) | payer OTHER, SELFPAY ==
[2022-09-22 14:19] VITALS: BP 117/65; PULSE 76
--- NOTE | ~2022-09-26 | US_ITS ---
EXAMINATION: US OB limited w BPP DATE: 09/22/2022 13:58 INDICATION: Possible cardiac decelerations on in office examination. Assess amniotic fluid inde x and biophysical profile. TECHNIQUE: Real-time pelvic ultrasound was performed. The interpreting radiologist was not present fo r the study. COMPARISON: None. FINDINGS: There is a single living fetus in vertex presentation. The placenta is fundal. heart rate is 1 31 beats per minute (bpm). Amniotic fluid index of 14.9 cm which is normal (5th%-95%: 7.7-44.9 cm at T6 weeks estimated gestational age) Biophysical profile performed by the technologist: breathing (30 sec sustained breathing in 30 minutes): 2 out of 2 movement (3 gross body movements in 30 minutes): 2 out of 2 tone (one episode of svwiybj-zvrciqlpx-yhcizgz limb movement): 2 out of 2 Amniotic fluid pocket (2 cm): 2 out of 2 Total score: 8 out of 8 IMPRESSION: 1. Single living fetus in vertex presentation with heart rate of 131 bpm. 2. Biophysical profile 8 out of 8. 3. Normal amniotic fluid index of 14.9 cm. Reviewed, dictated and finalized at location L.
--- NOTE | ~2022-09-26 | US_ITS ---
EXAMINATION: US OB limited w BPP DATE: 09/26/2022 11:10 INDICATION: Decelerations during third trimester TECHNIQUE: Real-time pelvic ultrasound was performed. The interpreting radiologist was not present fo r the study. COMPARISON: None. FINDINGS: There is a single living fetus in vertex presentation. The placenta is to the maternal left and outer range. heart rate is 141 beats per minute (bpm). The amniotic fluid index is 15.2 cm which is normal (normal range: 7.7 cm to 24.9 cm). Biophysical profile performed by the technologist: breathing (30 sec sustained breathing in 30 minutes): 2 out of 2 movement (3 gross body movements in 30 minutes): 2 out of 2 tone (one episode of uokfqxv-nmklowncq-gqgkvnd limb movement): 2 out of 2 Amniotic fluid pocket (2 cm): 2 out of 2 Total score: 8 out of 8 IMPRESSION: 1. Single living fetus in vertex presentation. 2. Biophysical profile 8 out of 8. 2. Normal amniotic fluid index. Reviewed, dictated and finalized at location B.
[2022-09-26 10:00] VITALS: BP 115/59; PULSE 73
== END 2022-11-23 11:49 | disposition home or self-care (01) ==
LOC: ANHOBOP 09:29
PROVIDERS: Visit Provider Obstetrics & Gynecology
DX: O09.293 Supervision of pregnancy with other poor reproductive or obstetric history, third trimester (principal); Z3A.36 36 weeks gestation of pregnancy
CPT/HCPCS: 59025; 76815; 76819

== ENCOUNTER 2022-10-03 02:44 | Inpatient (IN) | payer OTHER, SELFPAY ==
[2022-10-03] VITALS (83 sets, daily range): BP systolic 90–136; BP diastolic 48–87; PULSE 48–95; RESP 14–19; TEMP 36.6–37.2; O2SAT 87–100; BMI 27.0
[2022-10-03] MEDS: LACTATED RINGERS 1,000 ML 125 ML IV CONT (03:30)
[2022-10-03 03:49] LABS: Hematocrit 32.6 % (37.0-47.0); Hemoglobin 10.5 g/dL (12.0-15.0); Immature Granulocyte Percent A 0.5 % (0-0.5); Mean Corpuscular HGB Conc 32.2 g/dl (32-36); Mean Corpuscular Hemoglobin 28.1 pg (26-34); Mean Corpuscular Volume 87.2 fl (80-100); Mean Platelet Volume 10.2 fl (7.4-10.4); Neutrophils Percent Auto 74.4 % (45.5-73.1); Platelet Count Result 309 k/mm3 (150-375); Red Blood Count 3.74 M/mm3 (4.2-5.4); Red Cell Distribution Width 13.2 % (11.5-14.5); White Blood Count 12.3 K/mm3 (4.5-10.0)
[2022-10-03 03:50] LABS: Basophils Percent Auto 0.2 % (0.2-1.2); Eosinophils Absolute Auto 0.1 K/mm3 (0-0.3); Eosinophils Percent Auto 0.5 % (0-4.4); Immature Granulocyte Absolute 0.06 K/mm3 (0.00-0.031); Lymphocytes Absolute Auto 2.45 K/mm3 (0.9-3.2); Monocytes Absolute Auto 0.5 K/mm3 (0.1-0.6); Monocytes Percent Auto 4.4 % (2.6-8.5); Neutrophils Absolute Auto 9.1 K/mm3 (1.3-6.7)
--- NOTE | 2022-10-03 04:21 | LDADM ---
This patient, Joseline Dietrich, was admitted to Labor/Delivery/Recovery 120 on 10/03/22 at 02:44. Plans for labor, pain management and were discussed with patient. Patient/family oriented to hospital policies and general routines including ID bracelet, bed and alarms, visiting hours, pain management, procedures, bathroom and other care routines, personal items, smoking policy, room service/diet and guest tray routines, security routines, and visiting hours. Patient/Family are encouraged to report perceived risks to care and to ask questions if they do not understand what they are told or what they should do. See OBIX for further documentation.
[2022-10-03] MEDS: CHLORHEXIDINE GLUCONATE 0.12% ORAL RINSE 473 ML BTL (*BKC) 15 ML SWISH/SPIT ×2 (04:30→23:40)
[2022-10-03] MEDS: AZITHROMYCIN 500 MG/NS 250 ML 500 MG/250 ML BAG 250 MG IVPB (06:10)
--- NOTE | 2022-10-03 06:17 | WPDANESEPP ---
Anes - Eval Pre Procedure Procedure: Operation Date: 10/03/22 03:30 Proposed Procedures p Section - Vitaliy Rust MD Date/Time: 10/03/22 06:17 Pre Op Diagnosis: SROM Patient Data Age: 32 Gender: F Height: 1.57 m Weight: 67 kg Last Vital Signs Pulse 75 10/03/22 04:31 BP 108/48 L 10/03/22 04:31 Pulse Ox 98 10/03/22 06:13 Allergies Allergy/AdvReac Type Severity Reaction Status Date / Time No Known Allergies Allergy Verified 09/29/22 10:59 Home Medications Medication Instructions Recorded Confirmed Type PNV 153-FA 400 mcg-om3 35 mg-dha 1 tablet PO DAILY 04/05/22 09/18/22 History 25 mg-epa 5 mg-fish oil chew tablet ( Gummies) ferrous sulfate 325 mg (65 mg 325 mg PO DAILY 08/10/22 09/18/22 History iron) tablet chlorhexidine gluconate 0.12 % 15 ml buccal BID #750 mL 09/29/22 09/29/22 Rx mouthwash metronidazole 500 mg tablet 500 mg PO BID 7 days #14 tabs 09/29/22 Rx Laboratory Tests 10/03/22 03:44 WBC 12.3 H K/mm3 (4.5-10.0) RBC 3.74 L M/mm3 (4.2-5.4) Hgb 10.5 L g/dL (12.0-15.0) Hct 32.6 L % (37.0-47.0) MCV 87.2 fl (80-100) MCH 28.1 pg (26-34) MCHC 32.2 g/dl (32-36) RDW 13.2 % (11.5-14.5) Plt Count 309 k/mm3 (150-375) MPV 10.2 fl (7.4-10.4) Immature Gran % (Auto) 0.5 % (0-0.5) Neut % (Auto) 74.4 H % (45.5-73.1) Lymph % (Auto) 20.0 % (18.3-44.2) [place] % (Auto) 4.4 % (2.6-8.5) Eos % (Auto) 0.5 % (0-4.4) Baso % (Auto) 0.2 % (0.2-1.2) Lymph # (Auto) 2.45 K/mm3 (0.9-3.2) [place] # (Auto) 0.5 K/mm3 (0.1-0.6) Eos # (Auto) 0.1 K/mm3 (0-0.3) Baso # (Auto) 0.0 K/mm3 (0.0-0.1) Abs Immat Gran (auto) 0.06 H K/mm3 (0.00-0.031) Absolute Neuts (auto) 9.1 H K/mm3 (1.3-6.7) Absolute Nucleated RBC 0.0 K/mm3 (0.0-0.012) Nucleated RBC % 0.0 % (0.0-0.2) RPR Pending Blood Type O Positive Antibody Screen Negative Patient hx anesthesia problems: none Family hx anesthesia problems: none Results Review: All pre-operative results and documents have been reviewed as part of the pre-operative evaluation. FORMERLY [facility], [facility] Past Medical History Medical History Anxiety delivery delivered Failure to progress History of kidney infection during Surgical History Surgical History [place] teeth removed Family History Family History Grandparent Diabetes mellitus Social History Social History Smoking status: Current every day smoker Tobacco type: cigarettes Second hand tobacco smoke exposure: Yes Additional smoking assessment comments: Quit since finding out Alcohol intake: never Substance use: never Lack of Transportation: No Lack of Food: Never True Current Housing: I Have Housing Concerned About Future Housing: No Difficulty Paying Gas/Electric Bills: No Difficulty Paying for Meds: No Currently Unemployed: No Education: High School Diploma/GED Difficulty w/ Childcare or Family Care: No Spiritual care concerns: No Exam Day of Procedure 10/03/22 06:17 Patient weight: overweight Heart: regular rate and rhythm Lungs: normal air movement Airway: Mallampati scale Neurological: alert and oriented
--- NOTE | 2022-10-03 06:30 | PM.IMHP ---
H&P: HPI History of Present Illness Date/Time: 10/03/22 06:30 32-year-old 2 para 1 female presents with ruptured membranes and early labor. Prior delivery, scheduled for repeat. Also desires tubal ligation though paperwork has not been obtained and adequate period of time, patient aware will not be able to have tubal today. records are on the chart an uncomplicated care. Chief Complaint: Review of Systems Review of Systems: All systems reviewed & are unremarkable except as noted in HPI and below PMFSH Past Medical History Medical History Anxiety delivery delivered Failure to progress History of kidney infection during Surgical History Surgical History [place] teeth removed Family History Family History Grandparent Diabetes mellitus Social History Social History Smoking status: Current every day smoker Tobacco type: cigarettes Second hand tobacco smoke exposure: Yes Additional smoking assessment comments: Quit since finding out Alcohol intake: never Substance use: never Lack of Transportation: No Lack of Food: Never True Current Housing: I Have Housing Concerned About Future Housing: No Difficulty Paying Gas/Electric Bills: No Difficulty Paying for Meds: No Currently Unemployed: No Education: High School Diploma/GED Difficulty w/ Childcare or Family Care: No Spiritual care concerns: No Meds Home Medications and Allergies Home Medications Medication Instructions Recorded Confirmed Type PNV 153-FA 400 mcg-om3 35 mg-dha 1 tablet PO DAILY 04/05/22 09/18/22 History 25 mg-epa 5 mg-fish oil chew tablet ( Gummies) ferrous sulfate 325 mg (65 mg 325 mg PO DAILY 08/10/22 09/18/22 History iron) tablet chlorhexidine gluconate 0.12 % 15 ml buccal BID #750 mL 09/29/22 09/29/22 Rx mouthwash metronidazole 500 mg tablet 500 mg PO BID 7 days #14 tabs 09/29/22 Rx Allergies Allergy/AdvReac Type Severity Reaction Status Date / Time No Known Allergies Allergy Verified 09/29/22 10:59 Vital Signs Vital Signs - 24 hr 10/03/22 03:01 10/03/22 03:33 10/03/22 03:38 Pulse Rate 89 Blood Pressure 116/69 Pulse Oximetry 97 98 10/03/22 03:43 10/03/22 03:46 10/03/22 03:48 Pulse Rate 87 Blood Pressure 120/63 Pulse Oximetry 97 98 10/03/22 03:53 10/03/22 03:58 10/03/22 04:01 Pulse Rate 78 Blood Pressure 136/87 Pulse Oximetry 98 98 10/03/22 04:03 10/03/22 04:08 10/03/22 04:13 Pulse Rate Blood Pressure Pulse Oximetry 98 98 98 10/03/22 04:16 10/03/22 04:18 10/03/22 04:23 Pulse Rate 88 Blood Pressure 130/72 Pulse Oximetry 98 98 10/03/22 04:28 10/03/22 04:31 10/03/22 04:33 Pulse Rate 75 Blood Pressure 108/48 L Pulse Oximetry 98 98 10/03/22 04:38 10/03/22 04:43 10/03/22 04:48 Pulse Rate Blood Pressure Pulse Oximetry 98 99 99 10/03/22 04:53 10/03/22 04:58 10/03/22 05:03 Pulse Rate Blood Pressure Pulse Oximetry 99 98 98 10/03/22 05:08 10/03/22 05:13 10/03/22 05:18 Pulse Rate Blood Pressure Pulse Oximetry 96 98 98 10/03/22 05:23 10/03/22 05:28 10/03/22 05:33 Pulse Rate Blood Pressure Pulse Oximetry 100 96 98 10/03/22 05:38 10/03/22 05:43 10/03/22 05:48 Pulse Rate Blood Pressure Pulse Oximetry 98 98 99 10/03/22 05:53 10/03/22 05:58 10/03/22 06:03 Pulse Rate Blood Pressure Pulse Oximetry 97 97 98 10/03/22 06:08 10/03/22 06:13 10/03/22 06:18 Pulse Rate Blood Pressure Pulse Oximetry 99 98 100 Exam Const: General: cooperative, healthy appearing and comfortable Resp: Effort & Inspection: normal respiratory effort [place]
--- NOTE | 2022-10-03 06:35 | WPDHPUPDATE1 ---
History and Physical Update Update Date/Time: 10/03/22 06:35 History and Physical has been reviewed, including an updated exam of the patient. There are NO changes in the patient's condition. Risks, benefits, and alternatives have been discussed and questions answered. Patient agrees to proceed with procedure.
[2022-10-03] MEDS: ceFAZolin 2 GM/D5W 50 ML 2 GM/50 ML BAG IVPB (06:45)
--- NOTE | 2022-10-03 07:15 | P.PCNOB_ITS ---
OB - Delivery Note Procedure Procedure: Procedures Operation Date: 10/03/22 03:30 <No data on this case meets the specified criteria> Events: Previous Delivery Delivery monitor: External FHT and External Uterine Route of delivery: Quantitative Blood Loss (ml): 380 Anesthesia type: Spinal Disposition: Floor Complications: None Narrative: Patient prepped draped usual manner for this procedure. Pfannenstiel incision was made carried down to the fascia which was then extended bilaterally the length of the skin incision. Superiorly and inferiorly dissected away from the rectus muscles and the peritoneum was readily entered. Bladder flap was developed uterus was scored with clear fluid noted. Vertex was delivered breast baby was delivered as well cord clamped cut baby was passed off to the pediatric team in attendance. Placenta was manually removed and uterus was exteriorized. Membranes and clots removed from the endometrial cavity and the hysterotomy incision was approximated 0 Monocryl in a running interlocking manner with good approximation and hemostasis noted. Uterus was turned the abdomen and no bleeding was noted. All subfascial tissue was noted to be hemostatic and the fascia was then approximated left angle midline and the right angle to midline in a running manner with good approximation noted. Subcutaneous tissue was cauterized bleeders and approximated using 0 plain suture. [place] were then used to approximate the skin edges and the patient was sent to recovery room in stable condition. Baby Weeks of gestation at delivery: 38 Infant gender: Male presentation: vertex Placenta delivery description: Manual Removal score one minute: 9 score five minutes: 9 AMG Delivery Billing Delivery Delivery: Delivery Charge
[2022-10-03] MEDS: KETOROLAC 30 MG/ML VIAL (*BKC) 15 MG IV PUSH (07:59)
[2022-10-03] MEDS: OXYTOCIN 30 UNITS/NS 500 ML 30 UNITS/500 ML BAG 125 UNITS IV CONT (08:14)
--- NOTE | 2022-10-03 09:45 | PC.NURSE ---
Patient transferred to post room #282 via stretcher. Support person present. Oriented to unit, room, information board, rooming in, admission packet and security measures. Patient verbalizes understanding.
[2022-10-03] MEDS: KETOROLAC 30 MG/ML VIAL (*BKC) IV PUSH ×2 (10:19→19:06)
[2022-10-03 12:37] LABS: Rapid Plasma Reagin Non-Reactive (NonReactive)
[2022-10-03] MEDS: DEXTROSE 5%/0.45% SOD CHL 1,000 ML 125 ML IV CONT (12:39)
[2022-10-03] MEDS: DOCUSATE SODIUM 100 MG CAPSULE PO ×2 (12:40→23:37)
[2022-10-03] MEDS: MULTIVIT/MIN/PREN/FOL AC/IRON TABLET 1 TAB PO (12:40)
[2022-10-03] MEDS: KCL 20 MEQ/D5/0.45% SOD CHL 1,000 ML 125 ML IV CONT (19:43)
[2022-10-03] MEDS: HYDROcodone/acetaminophen (*CRX) 5-325 MG TABLET 1 TAB PO (23:37)
[2022-10-04] MEDS: KETOROLAC 30 MG/ML VIAL (*BKC) IV PUSH (00:55)
[2022-10-04 05:06] LABS: Basophils Percent Auto 0.2 % (0.2-1.2); Eosinophils Absolute Auto 0.1 K/mm3 (0-0.3); Eosinophils Percent Auto 0.4 % (0-4.4); Hematocrit 25.9 % (37.0-47.0); Hemoglobin 8.1 g/dL (12.0-15.0); Immature Granulocyte Absolute 0.08 K/mm3 (0.00-0.031); Immature Granulocyte Percent A 0.7 % (0-0.5); Lymphocytes Absolute Auto 2.61 K/mm3 (0.9-3.2); Lymphocytes Percent Auto 22.7 % (18.3-44.2); Mean Corpuscular HGB Conc 31.3 g/dl (32-36); Mean Corpuscular Hemoglobin 28.6 pg (26-34); Mean Corpuscular Volume 91.5 fl (80-100); Mean Platelet Volume 10.5 fl (7.4-10.4); Monocytes Absolute Auto 0.9 K/mm3 (0.1-0.6); Neutrophils Absolute Auto 7.8 K/mm3 (1.3-6.7); Platelet Count Result 257 k/mm3 (150-375); Red Blood Count 2.83 M/mm3 (4.2-5.4); Red Cell Distribution Width 13.2 % (11.5-14.5); White Blood Count 11.5 K/mm3 (4.5-10.0)
[2022-10-04] MEDS: MULTIVIT/MIN/PREN/FOL AC/IRON TABLET 1 TAB PO (06:57)
[2022-10-04] MEDS: IBUPROFEN 600 MG TABLET PO ×3 (06:57→21:15)
[2022-10-04] MEDS: POLYSACCHARIDE IRON COMPLEX 150 MG CAPSULE PO ×2 (06:57→14:50)
[2022-10-04] MEDS: HYDROcodone/acetaminophen (*CRX) 5-325 MG TABLET 1 TAB PO ×3 (06:58→21:15)
[2022-10-04] MEDS: CHLORHEXIDINE GLUCONATE 0.12% ORAL RINSE 473 ML BTL (*BKC) 15 ML SWISH/SPIT ×2 (06:59→14:52)
[2022-10-04] MEDS: DOCUSATE SODIUM 100 MG CAPSULE PO ×2 (07:00→14:50)
[2022-10-04 07:25] VITALS: BP 123/64; PULSE 54; RESP 18; TEMP 36.9; O2SAT 95
--- NOTE | 2022-10-04 12:51 | PM.OBPNVD ---
OB - PN: Subj Subjective Date/time seen: 10/04/22 0815 Patient comments: pain well controlled, tolerating diet and flatus present [place] baby status: doing well and bottle feeding well feeding status: pumping and bottle feeding OB - PN: Obj Data Labs 10/04/22 04:02 Labs: Laboratory Results - last 24 hr 10/04/22 04:02 WBC 11.5 H RBC 2.83 L Hgb 8.1 L Hct 25.9 L MCV 91.5 MCH 28.6 MCHC 31.3 L RDW 13.2 Plt Count 257 MPV 10.5 H Immature Gran % (Auto) 0.7 H Neut % (Auto) 68.0 Lymph % (Auto) 22.7 [place] % (Auto) 8.0 Eos % (Auto) 0.4 Baso % (Auto) 0.2 Lymph # (Auto) 2.61 [place] # (Auto) 0.9 H Eos # (Auto) 0.1 Baso # (Auto) 0.0 Abs Immat Gran (auto) 0.08 H Absolute Neuts (auto) 7.8 H Absolute Nucleated RBC 0.0 Nucleated RBC % 0.0 OB - PN A/P Assessment and Plan (1) Delivery by section: Status: Acute Assessment and Plan: Doing well. Routine post op care. Time Spent With Patient Time: Total time spent is greater than 50% in coordination of care (as documented) at patient's floor/unit and/or counseling patient: Exam Const: General: comfortable and no acute distress Resp: Effort & Inspection: normal respiratory effort GI: Other: fundus -1 umb firm appropriate tender, incision dry staptes intact Extrem: General: normal to inspection and no calf tenderness Psych: Mental Status: mental status grossly normal Affect: normal affect
--- NOTE | 2022-10-04 13:06 | WPDANLDPN2 ---
Anes-Prog Note L&D Date/Time: 10/04/22 13:06 Neuro status: Neuro function grossly intact. Vital Signs: Last Vital Signs Temp 36.9 C 10/04/22 07:25 Pulse 54 L 10/04/22 07:25 Resp 18 10/04/22 07:25 BP 123/64 10/04/22 07:25 Pulse Ox 95 10/04/22 07:25 O2 Del Method Room Air 10/03/22 09:15 Pain score (VAS): 0 I/O: Intake & Output 10/03/22 10/04/22 10/04/22 23:59 07:59 15:59 Intake Total 2130 600 240 Output Total 790 384 9661 Balance 4698 -793 -725 Patient feedback: Patient satisfied with anesthetic care.
--- NOTE | 2022-10-04 13:06 | WPDANLDNPN2 ---
Anes-Prog Note L&D-Neuraxial Date/Time: 10/04/22 13:06 Patient feedback: Patient satisfied with post-operative pain management.
[2022-10-04 21:15] VITALS: BP 116/57; PULSE 66; RESP 16; TEMP 36.7
[2022-10-05] MEDS: IBUPROFEN 600 MG TABLET PO ×2 (03:21→09:49)
[2022-10-05] MEDS: HYDROcodone/acetaminophen (*CRX) 5-325 MG TABLET 1 TAB PO ×2 (03:21→09:48)
[2022-10-05 07:30] VITALS: BP 118/64; PULSE 60; RESP 16; TEMP 36.9; O2SAT 94
--- NOTE | 2022-10-05 08:10 | PM.OBPNVD ---
OB - PN: Subj Subjective Date/time seen: 10/05/22 08:10 Interval history: Denies leg pain or SOB. Lochia decreasing. Patient comments: pain well controlled, tolerating diet and flatus present [place] baby status: doing well OB - PN: Obj Data Labs 10/04/22 04:02 OB - PN A/P Assessment and Plan (1) Delivery by section: Status: Acute Assessment and Plan: POD2. She is doing well. Discharge to home. Discharge precautions discussed. Plan Plan: discharge home Time Spent With Patient Time: Total time spent is greater than 50% in coordination of care (as documented) at patient's floor/unit and/or counseling patient: Exam Const: General: comfortable and no acute distress Eyes: General: appearance normal, both eyes and all related structures Resp: Effort & Inspection: normal respiratory effort GI: Other: incision karrie intact, no drainage or erythema Neuro: General: oriented to person, oriented to place and oriented to time Extrem: General: normal to inspection and no calf tenderness Psych: Mental Status: mental status grossly normal
--- NOTE | 2022-10-05 08:13 | PM.OBDSVD ---
DS: Admitting Diagnosis Discharge Date 10/05/21 Admitting Diagnosis Spontaneous rupture of membranes DS: Discharge Diagnosis Discharge Diagnosis (1) Delivery by section: Status: Acute OB - DS: Summary Hospital Course Hospital Course: She was admitted to hospital after confirmation of SROM. She had an uncomplicated repeat section. She did well . She had adequate pain control with oral medication. She was ambulating and tolerating regular diet and had positive flatus. She had post op anemia, asymptomatic and was given oral iron therapy. She was discharged to home on POD 2. Discharge precautions discussed. OB Procedures : NST and Ultrasound OB Procedures Intrapartum: OB Procedures: : None Peripartum Data Delivery Method: Section Procedures: Procedures Operation Date: 10/03/22 03:30 Actual Procedure Side Surgeon p Section Bilateral Vitaliy Rust MD Status at Discharge Functional status at discharge: independent ambulation Time Spent with Patient Time attestation: Total time spent providing and/or coordinating discharge services: Exam Const: General: cooperative Orientation/consciousness: oriented to person, oriented to place and oriented to time HENMT: Face/Nose/Sinus: Normal external nose present Eyes: General: appearance normal, both eyes and all related structures Resp: Effort & Inspection: normal respiratory effort GI: Inspection: normal to inspection Other: incision intact no drainage staple intact Skin: General skin exam: normal color Neuro: General: oriented to person, oriented to place and oriented to time Extrem: General: normal to inspection and no calf tenderness Psych: Appearance: grossly normal Mental Status: mental status grossly normal DS: Data Data Completed and Pending Pending studies at discharge: Pending at discharge 10/03/22 07:38 Surgical [PTH] Routine Discharge Plan Discharge Attending physician on discharge: Gage Dozier Consulting providers: Summer Adame Discharging Clinician: Gage Dozier Anticipated Discharge Date/Time: 10/05/22 08:16 Patient Disposition: Home, Self-Care Activity: may shower, no straining, no driving and pelvic rest Diet: regular Wound Care Instructions: follow printed instructions Discharge Instructions: She will need to have karrie removed/steris applied at follow up visit for Monday. Patient Instructions: Antibiotic Form, (DC) Stand Alone Forms: General Discharge Information Follow-up/Referrals: Gage Dozier MD [Physician] - Discharge Medications: New hydrocodone-acetaminophen 5-325 mg Tablet 1 tablet PO Q3H PRN (Reason: Moderate Pain (4-6)) Qty: 20 0RF ibuprofen 600 mg Tablet 600 mg PO Q6H PRN (Reason: Cramping) Qty: 30 0RF ferrous sulfate 324 mg (65 mg iron) tablet,delayed release (DR/EC) 324 mg PO BID Qty: 60 0RF Continued chlorhexidine gluconate 0.12 % mouthwash 15 ml buccal BID Qty: 750 2RF Gummies 400 mcg-35 mg- 25 mg-5 mg tablet,chewable 1 tablet PO DAILY ferrous sulfate 325 mg (65 mg iron) tablet 325 mg PO DAILY Discontinued metronidazole 500 mg tablet 500 mg PO BID 7 Days Qty: 14 0RF Date of admission: 10/03/22 02:44 Primary Care Provider: PHYSICIAN,SALESPERSON [employer] Admitting Provider: Gage Dozier Attending physician on admission: Gage Dozier Condition: Stable
[2022-10-05] MEDS: POLYSACCHARIDE IRON COMPLEX 150 MG CAPSULE PO (09:48)
[2022-10-05] MEDS: MULTIVIT/MIN/PREN/FOL AC/IRON TABLET 1 TAB PO (09:49)
[2022-10-05] MEDS: DOCUSATE SODIUM 100 MG CAPSULE PO (09:49)
--- NOTE | 2022-10-05 15:18 | PC.NURSE ---
1125 - Mother made the decision to pump and feed her with no plan to breastfeed. Instructions given on cleaning, care, usage, that there should be no pain, pumping schedule for milk production, collection, and storage of human milk. Mother voiced understanding of the education shared along with mom and baby guide for additional resource information.
[2022-10-08 11:30] VITALS: BP 140/76; PULSE 50; RESP 18; O2SAT 100
== END 2022-10-05 11:48 | disposition home or self-care (01) | DRG 540 ==
LOC: ANHLDR 03:12 → ANHOB2 09:45
PROVIDERS: Obstetrics & Gynecology; Admitting Provider Obstetrics & Gynecology; Visit Provider Obstetrics & Gynecology
PROC: 10D00Z1 Extraction of Products of Conception, Low, Open Approach (ICD-10-PCS; CPT 59514; principal; 2022-10-03 03:30)
DX: O34.211 Maternal care for low transverse scar from previous cesarean delivery (principal); O99.824 Streptococcus B carrier state complicating childbirth; Z37.0 Single live birth; Z3A.37 37 weeks gestation of pregnancy
CPT/HCPCS: 36415; 85025; 86592; 86850; 86900; 86901; 88307; A4248; A9270; J0456; J0690; J1885; J2274; J2590; J3480; J7120

== ENCOUNTER 2023-02-24 00:44 | Day surgery (SDC) | payer OTHER, SELFPAY ==
[2023-02-15 12:49] VITALS: BMI 24.2
--- NOTE | 2023-02-15 12:58 | PC.NURSE ---
Report to the Outpatient Waiting Room, entrance under the green pavilion located off [facility], at time 0745_ on date _02/24/23_. Planned Procedure Time: __0945_. Time changes happen often and if your time is changed the preop area will call you the afternoon before. - You and your visitor will be asked to self-screen and do not enter if you have any COVID symptoms. - A mask is optional within the hospital at this time. Patients may have clear liquids (water, carbonated beverages, clear teas, apple juice) until 3 hours prior to surgery with a maximum of 20 ounces. - No food from midnight until time of surgery - Infants may have breast milk until 4 hours before surgery, infant formula 6 hours prior to surgery. - Children will be allowed to drink immediately following surgery. If applicable, please bring a bottle or sippy cup to assist with drinking. Juice, water, soda, and popsicles are readily available. For infants on formula, please bring formula the day of surgery. Pacifiers are allowed. Take the following medications with a SIP of water the morning of surgery: TYLENOL IF NEEDED DO NOT STOP ANY OF YOUR OTHER PRESCRIPTION MEDICATIONS PRIOR TO SURGERY ?EXCEPT THE FOLLOWING Medications to discontinue per physician NONE Date to take last dose Please no make-up, nail burmese, hairspray, perfume, deodorant, or body powder the day of surgery. No jewelry (including any body piercings) or valuables the day of surgery, leave them at home. Please take a shower or bath the night before, or the morning of, surgery with an antibacterial soap. Wear comfortable, loose fitting clothing. Children are encouraged to wear pajamas. - Jewelry must be removed prior to entering the operating room. Rings and piercings that are not removed may be cut off. - The hospital will not accept responsibility for valuables. - Please leave all valuables, including medications, at home the day of surgery. If you are going home after surgery, a licensed recycling collections driver must drive you home. - NO public transportation without another adult if you receive anesthesia. - We recommend that an adult stay with you for 24 hours following discharge. - We also recommend that you do not drive, make important decision, drink alcoholic beverages, or take any drugs that were not prescribed by your health care provider for at least 24 hours after your discharge time. For Pediatric surgeries, we recommend two adults accompany the child home. Follow any additional instructions given to you from your surgeon. If you or anyone in your household have experienced Covid symptoms in the past week, please notify your surgeon or the nurse liaison at the phone number below for possible testing. Telephone instructions given to _PATIENT__and asked if any additional questions and then verbalized understanding. Patient advised to call surgeon office or pre surgery nurse liaison [phone] if any additional questions.
[2023-02-24] VITALS (9 sets, daily range): BP systolic 129–155; BP diastolic 81–90; PULSE 61–82; RESP 12–16; TEMP 36.1; O2SAT 96–100
--- NOTE | 2023-02-24 05:53 | PM.IMHP ---
H&P: HPI History of Present Illness Date/Time: 02/24/23 05:53 Chief Complaint: Undesired fertility Narrative: She is here today for scheduled laparoscopic sterilization procedure. She has satisfied parity and she request permanent sterilization. She declines alternative options for contraception. She has been informed of risk benefit of sterilization and alternative procedures. Review of Systems Review of Systems: All systems reviewed & are unremarkable except as noted in HPI and below Cardiovascular: Cardiovascular: Reports no additional cardiovascular complaints, Denies chest pain and Denies dyspnea Respiratory: Respiratory: Reports no additional respiratory complaints and Denies dyspnea Gastrointestinal: Gastrointestinal: Reports abdominal pain, Denies change in bowel habits, Denies diarrhea, Denies nausea and Denies vomiting Genitourinary: Genitourinary: Reports pelvic pain Musculoskeletal: Musculoskeletal: Reports back pain Integumentary/Breasts: Skin/Breast: Reports system reviewed and no additional complaints, except as docu Neurologic: Reports system reviewed and no additional complaints, except as documented PMFSH Past Medical History Medical History Anxiety History of kidney infection during Surgical History Surgical History History of primary section S/P repeat low transverse (~10/03/22) [place] teeth removed Family History Family History Grandparent Diabetes mellitus Social History Social History Smoking packs per day: 0.5 Smoking cigarettes per day: 10.0 Years smoked: 16 Smoking pack-years: 8.00 Smoking status: Current every day smoker Tobacco type: cigarettes Second hand tobacco smoke exposure: Yes Additional smoking assessment comments: Quit since finding out Alcohol intake: current Alcohol use details: RARE Substance use: never Lack of Transportation: No Lack of Food: Never True Current Housing: I Have Housing Concerned About Future Housing: No Difficulty Paying Gas/Electric Bills: No Difficulty Paying for Meds: No Currently Unemployed: No Education: High School Diploma/GED Difficulty w/ Childcare or Family Care: No Living arrangements: with family Spiritual care concerns: No Meds Home Medications and Allergies Home Medications Medication Instructions Recorded Confirmed Type acetaminophen 500 mg tablet 500 mg PO PRN PRN Pain 02/15/23 02/15/23 History Allergies Allergy/AdvReac Type Severity Reaction Status Date / Time No Known Allergies Allergy Verified 02/15/23 12:48 Exam Const: Orientation/consciousness: oriented to person and oriented to place HENMT: Head: normal to inspection Eyes: General: appearance normal, both eyes and all related structures Resp: Effort & Inspection: normal respiratory effort Auscultation: clear to auscultation bilaterally Cardio: Rate: regular rate Rhythm: regular rhythm GI: Inspection: normal to inspection GI Palp: No Rebound tenderness present Neuro: General: oriented to person and oriented to place Cognition (Neuro): normal cognition Extrem: General: normal to inspection Psych: Appearance: grossly normal and well kempt Assessment and Plan Assessment and plan (1) Request for sterilization: Code(s): Z30.2 - Encounter for sterilization Status: Acute Assessment and Plan: Will proceed with laparoscopic sterilization with bilateral salpingectomy.
[2023-02-24] MEDS: ACETAMINOPHEN 500 MG TABLET 1000 MG PO (08:30)
[2023-02-24] MEDS: KETOROLAC 15 MG/ML VIAL (*BKC) IV PUSH (08:30)
[2023-02-24] MEDS: LACTATED RINGERS 1,000 ML 30 ML IV CONT ×2 (09:00→10:32)
--- NOTE | 2023-02-24 09:29 | P.PNAN_ITS ---
Anes - Initial Pre Proc Eval Procedure: Operation Date: 02/24/23 09:45 Proposed Procedures p Laparoscopic Bilateral Salpingectomy - Gage Dozier MD Date/Time: 02/24/23 09:29 Surgeon: Gage Dozier MD Pre Op Diagnosis: desires sterilization Patient Data Age: 32 Gender: F Height: 1.57 m Weight: 59.9 kg Allergies Allergy/AdvReac Type Severity Reaction Status Date / Time No Known Allergies Allergy Verified 02/24/23 08:58 Home Medications Medication Instructions Recorded Confirmed Type acetaminophen 500 mg tablet 500 mg PO PRN PRN Pain 02/15/23 02/15/23 History Patient hx anesthesia problems: none Family hx anesthesia problems: none Results Review: All pre-operative results and documents have been reviewed as part of the pre- operative evaluation. [facility] Past Medical History Medical History Anxiety History of kidney infection during Surgical History Surgical History History of primary section S/P repeat low transverse (~10/03/22) [place] teeth removed Family History Family History Grandparent Diabetes mellitus Social History Social History Smoking packs per day: 0.5 Smoking cigarettes per day: 10.0 Years smoked: 16 Smoking pack-years: 8.00 Smoking status: Current every day smoker Tobacco type: cigarettes Second hand tobacco smoke exposure: Yes Additional smoking assessment comments: Quit since finding out Alcohol intake: current Alcohol use details: RARE Substance use: never Lack of Transportation: No Lack of Food: Never True Current Housing: I Have Housing Concerned About Future Housing: No Difficulty Paying Gas/Electric Bills: No Difficulty Paying for Meds: No Currently Unemployed: No Education: High School Diploma/GED Difficulty w/ Childcare or Family Care: No Living arrangements: with family Spiritual care concerns: No Anes - Eval Final PreProcedure Day of Procedure 02/24/23 09:29 Patient weight: normal Heart: regular rate and rhythm Lungs: clear to auscultation Airway: Mallampati scale class II and special considerations poor dentition Neurological: alert and oriented Last oral intake: >/= 8 hours ASA classification: III Emergent: no Anesthetic plan: proceed Anesthesia type and monitoring: general ETT and standard monitoring Results Review: All pre-operative results and documents have been reviewed as part of the pre- operative evaluation. Informed Consent: The patient's anesthetic plan and its attendant risks and benefits were discussed with the patient/family/POA. Questions were solicited and answers provided to the satisfaction of the patient/family/POA.
--- NOTE | 2023-02-24 09:36 | WPDHPUPDATE1 ---
History and Physical Update Update Date/Time: 02/24/23 09:36 History and Physical has been reviewed, including an updated exam of the patient. There are NO changes in the patient's condition. Risks, benefits, and alternatives have been discussed and questions answered. Patient agrees to proceed with procedure.
[2023-02-24] MEDS: BUPivacaine HCL 0.5% PF 30 ML VIAL 15 ML INFILTRATE (10:09)
--- NOTE | 2023-02-24 10:20 | P.OP_ITS ---
Procedure Note - Detailed Date of Procedure 02/24/23 Pre-op Diagnosis desires sterilization Post-op Diagnosis Same Procedure Performed Laparoscopic sterilization with bilateral salpingectomy. Lysis of adhesions Surgeon Gage Dozier MD Anesthesia MAC Indications Undesired fertility. Findings Adhesion of omental tissue to mid abdomen below umbilicus, small hernia noted at site. Normal uterus and normal right fallopian tube and ovary. Left fallopian tube with white growth at fimbriated end that appeared ovarian but separate from ovary. This was removed with the fallopian tube. Description of Procedure After informed consent was obtained patient was taken to the operating room and general endotracheal anesthesia was administered. She was placed in low lithotomy need prep prepped sterile fashion. Attention was turned to the vagina speculum inserted single-tooth tenaculum placed on anterior lip of the cervix. [place] uterine manipulator placed into the cervical canal. The speculum was removed. Attention was then turned to the abdomen. .5% Marcaine injected below umbilical. A small horizontal skin incision was made at the umbilicus and a Veress needle was inserted into the abdomen confirmation into the abdomen obtained with normal peritoneal pressures. A pneumoperitoneum of 15 mm per mercury was obtained. .5% Marcaine was injected subutaneously on right side of abdomen.The 5 mm port was inserted under laparoscopic visualization.Patient was placed in Trendelenburg position. Attention was turned to the left side of the abdomen and a 5 mm port was inserted under laparoscopic visualization. The pelvic organs were visualized. Using the LigaSure the left fallopian tube and the growth attahed to fimbria was excised to near the entrance to the uterus. This was removed through the port. Attention was then turned to the right fallopian tube which was ligated from broad ligament and uterus with ligasure. The fallopian tube was removed through the 5 mm port. Hemostasis was noted at both sites. Patient was taken out of Trendelenburg position the pneumoperitoneum was released and the skin incisions were closed in a subcuticular fashion with 4 O Vicryl. Estimated Blood Loss 5 Drains No Packing No Pathology Yes (right fallopian tube, left fallopian tube with attached growth) Complications No immediate complications Condition Stable Disposition Same day [facility] Billing Surgery - Charge Forward: Surgery Billing
[2023-02-24] MEDS: ONDANSETRON INJ 4 MG/2 ML VIAL IV PUSH (11:00)
[2023-02-24] MEDS: oxyCODONE HCL (*CRX) 5 MG TAB IR PO (11:40)
== END 2023-02-24 11:32 | disposition home or self-care (01) ==
PROVIDERS: Visit Provider Obstetrics & Gynecology
PROC: (CPT 49320; principal; 2023-02-24 09:45)
DX: Z30.2 Encounter for sterilization (principal); D28.2 Benign neoplasm of uterine tubes and ligaments; N73.6 Female pelvic peritoneal adhesions (postinfective); K42.9 Umbilical hernia without obstruction or gangrene; F17.210 Nicotine dependence, cigarettes, uncomplicated
CPT/HCPCS: 58661; 88302; A9270; J0330; J1100; J1885; J2250; J2405; J2704; J3010; J7030; J7120

== ENCOUNTER 2024-11-29 13:08 | Emergency (ER) | payer MEDICAID, SELFPAY ==
--- OUTSIDE RECORDS SUMMARY | 2020-08-24 03:30 | XMS_ITS | Continuity of Care Document ---
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 Phone Unavailable Unavailable Unavailable Procedures Procedure Date Extraction erupted tooth or exposed root Extraction erupted tooth or exposed root Periapical Radiographic, first Image Aug Periapical Radiographic Image, ea addl J Limit Oral Evaluation- problem focused J Advance Directives Directive Yes / No Effective Date File Name No Information Encounters Encounter Description Practice Location Reason(s) For Visit Diagnoses Date Provider Providers Copied on Encounter [facility] , [address], [place], [place], [id number], tel:[phone] Dental [facility] Encounter for dental exam and cleaning w abnormal findings No Information Referring Provider: Prashanth Lucero, [address], [place], [address]. tel:[phone] Family History Family Member Type Diagnosis Age At Onset No Information Payers Payer name Insurance type Covered republican ID Authoriza tion(s) No Information Social History Type Description Quantity Date Captured Comments Sex Female Smoking Status No Information Chief Complaint And Reason For Visit No Information Reason For Referral Reason For Referral No Information History Of Present Illness Encounter Date Complaint History Of Prese nt Illness No Information Functional Status Date Functional Assessmen t No Information Instructions Date Instruction Additional Infor mation No Information Assessments Type Assessment Date No Information Patient Care Teams Name Effective Dates (start - stop) Status Members No Information
--- OUTSIDE RECORDS SUMMARY | 2020-08-24 03:30 | XMS_ITS | Continuity of Care Document ---
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 tel:[phone] Family History Family Member Type Diagnosis Age At Onset No Information Payers Payer name Insurance type Covered constitution party ID Authoriza tion(s) No Information Social History [...]
--- NOTE | ~2024-11-29 | CT_ITS ---
CT abdomen pelvis wo con INDICATION:kidney stone r/o . COMPARISON: None. TECHNIQUE: Axial 2.5 mm images of the abdomen were obtained without IV or oral contrast. Diagnostic sensitivity is limited due to lack of IV contrast. FINDINGS: The lung bases are clear. The liver parenchyma is unremarkable. No intrahepatic mass or ductal dilatation is evident. The gallbladder is unremarkable. The pancreas and spleen are normal in appearance. The adrenal glands are symmetric in size. The kidneys are unremarkable. No intrarenal stones are noted. There is no hydronephrosis. The stomach and bowel loops are unremarkable. The appendix is not visualized however no secondary signs of appendicitis are identified. The bladder and rectum are normal. The uterus and both adnexa are unremarkable. No free intraperitoneal fluid or air is evident. There is no significant retroperitoneal lymphadenopathy. The aorta, visceral vessels and renal arteries demonstrate normal caliber. The lower thoracic and lumbar vertebrae are in normal alignment. IMPRESSION: No acute abnormality is noted in the abdomen and pelvis. All CT scans at this facility are performed using low dose modulation techniques as appropriate to perform exam including the following: automated exposure control; use of iterative reconstruction technique; adjustment of the mA and/or kV according to patient size (this includes techniques or standardized protocols for targeted exams where dose is matched to indication/reason for exam). Reviewed, dictated and finalized at location S. IMPRESSION: No acute abnormality is noted in the abdomen and pelvis. All CT scans at this facility are performed using low dose modulation techniqu es as appropriate to perform exam including the following: automated exposure c ontrol; use of iterative reconstruction technique; adjustment of the mA and/or kV according to patient size (this includes techniques or standardized protocol s for targeted exams where dose is matched to indication/reason for exam).
--- NOTE | ~2024-11-29 | XR_ITS ---
XR lumbar spine 2-3V INDICATION: Right-sided back pain COMPARISON: None. TECHNIQUE: AP and lateral views of the lumbar spine as well as coned-down views of L5-S1 were obtained. FINDINGS: There is no compression fracture or malalignment. No significant degenerative disc changes are present. No soft tissue abnormalities are identified. IMPRESSION: Normal lumbar spine. Reviewed, dictated and finalized at location S. IMPRESSION: Normal lumbar spine.
--- OUTSIDE RECORDS SUMMARY | 2024-11-29 13:16 | XMS_ITS | Clinical Summary ---
Author Organization [facility] Address [address] [place], [place] [address] Phone Care Team Providers Care Orthopedic Physician Assistant Name Role Phone Unavailable Primary Care Provider Unavailabl e Allergies No known active allergies Medications acetaminophen-ca ffeine-butalbita l (FIORICET) 325-40-50 mg Oral tabletIndication s:Headache(784.0 ) Take 1 Tab by mouth every 4 hours as needed for Headaches. 10 Tab 0 12/21/2010 Active vitamin-iron fumarate-folic acid 27 mg-0.8 mg Tablet Take 1 Tablet by mouth daily. Active Active Problems Problem Noted Date Diagnosed Date Vaginal bleeding in , third trimester 0 08/21/2022 Previous delivery affecting 0 08/19/2022 Resolved Problems Problem Noted Date Diagnosed Date Resolved Date premature rupture of membranes with onset of labor more than 24 hours following rupture in third trimester 08/19/2022 08/21/2022 Social History Tobacco Use Types Packs/Day Years Used Date Smoking Tobacco: Former Cigarettes Smokeless Tobacco: Never Alcohol Use Standard Drinks/Week Comments No 0 (1 standard drink = 0.6 oz pur e alcohol) Feeling Safe Answer Date Recorded Are you in a relationship wi th someone who hurts you emotionally and/or physically? 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 Gender Identity Not on file Sexual Orientation Not on file Last Filed Vital Signs Vital Sign Reading Time Taken Comments Blood Pressure 116/53 08/21/2022 11:37 AM CDT Pulse 74 08/21/2022 11:37 AM CDT Temperature 36.3 C (97.3 F) 08/21/2022 11:37 AM CDT Respiratory Rate 16 08/21/2022 11:37 AM CDT Oxygen Saturation 98% 08/21/2022 11:37 AM CDT Inhaled Oxygen Concentration - - Weight 64.4 kg (142 lb) 08/21/2022 4:13 AM CDT Height 157.5 cm (5' 2) 08/19/2022 3:20 PM CDT Body Mass Index 25.97 08/19/2022 3:20 PM CDT Plan of Treatment Health Maintenance Due Date Last Done Comments DTAP/TDAP/TD VACCINES (1 - Tdap) 2009 HEPATITIS B VACCINES (1 of 3 - 19+ 3-dose series) 07/15 HPV/Cotest (21-29) 08/12/2011 HPV VACCINES (1 - 3-dose SCDM series) 2017 CERVICAL CANCER SCREENING 2020 HPV/Cotest (30-65) 2020 PAP SMEAR 2020 INFLUENZA VACCINE (#1) 2024 Insurance [employer] [place]
--- OUTSIDE RECORDS SUMMARY | 2024-11-29 13:16 | XMS_ITS | Clinical Summary ---
Author Organization [facility] Address [address] [place] [address] Care Team Providers Care Salesperson Yard Goods Name Role Phone Unavailable Primary Care Provider Unavailabl e Source Comments [facility],non-owned Affiliates and Associated Physician Practices is amultiple site organization consisting of ambulatory clinics and hospital sitesin [place], [place], [place] and [place]. This disclosure is being madepursuant to the Care Everywhere program and may not contain all information available regarding this patient. Last updated 17.[facility] Allergies No known active allergies Medications * Be aware that medications may not be up to date on this document. Alwaysverify current medications with the patient. acetaminophen (TYLENOL) 500 MG tablet Take 2 (two) tablets by mouth every 6 hours as needed Maximum allowable Acetaminophen amount = 4 Grams (4000 mg) / 24 hours. 09/02/19 21 Active Vit-DSS-Fe Fum-FA ( VITAMIN WITH IRON) tabletIndications: Nausea and vomiting, intractability of vomiting not specified, unspecified vomiting type Take 1 (one) tablet by mouth once daily 60 tablet 3 09/03/19 21 Active nitrofurantoin monohyd macro crystals (MACROBID) 100 MG capsule Take 1 (one) capsule by mouth once daily 30 capsule 3 09/02/19 21 Active Active Problems Problem Noted Date Diagnosed Date Anemia 08/31/2020 Shortness of breath 08/31/2020 Bacteremia due to Escherichia coli 08/31/2020 Nausea and vomiting 08/29/2020 Acute pyelonephritis 08/29/2020 Social History Tobacco Use Types Packs/Day Years Used Date Smoking Tobacco: Never Smokeless Tobacco: Never Alcohol Use Standard Drinks/Week Comments Never 0 (1 standard drink = 0.6 oz pur e alcohol) Comments No Sex and Gender Information Value Date Recorded Sex Assigned at Not on file Legal Sex Female 6:26 AM AUDIOVISUAL TECH Gender Identity Not on file Sexual Orientation Not on file Last Filed Vital Signs Vital Sign Reading Time Taken Comments Blood Pressure 105/67 09/01/2020 8:30 AM CDT Pulse 62 09/01/2020 8:30 AM CDT Temperature 36.6 C (97.9 F) 09/01/2020 8:30 AM CDT Respiratory Rate 18 09/01/2020 8:30 AM CDT Oxygen Saturation 100% 09/01/2020 8:30 AM CDT Inhaled Oxygen Concentration - - Weight 61.7 kg (136 lb) 08/30/2020 6:40 PM CDT Height 154.9 cm (5' 1) 08/30/2020 6:40 PM CDT Body Mass Index 25.7 08/30/2020 6:40 PM CDT Plan of Treatment Health Maintenance Due Date Last Done Comments HEPATITIS C SCREENING 08/06/2008 DTAP/TDAP/TD VACCINES (1 - Tdap) 2009 HEPATITIS B VACCINE (1 of 3 - 19+ 3-dose series) 2009 PAP SMEAR 08/12/2011 HPV VACCINE (1 - 3-dose SCDM series) 2017 DEPRESSION SCREENING 02/14/2024 COVID-19 VACCINE (1 - 4-2 5 season) 2024 INFLUENZA VACCINE (#1) 2024 ZOSTER VACCINE (1 of 2) 2040 HIV SCREENING Completed 08/30/2020 HIB VACCINE Aged Out No longer eligi ble based on patient's age to complete this topic MENINGOCOCCAL (Group B) VACC INE SHARED DECISION-MAKING Aged Out No longer eligibl e based on patient's age to complete this topic MENINGOCOCCAL GROUPS A/C/Y/W VACCINE Aged Out No longer eligible b ased on patient's age to complete this topic PNEUMOCOCCAL VACCINE Aged Out No long er eligible based on patient's age to complete this topic Procedures Procedure Name Priority Date/Time Associated Diagnosis Comments HIV-1 HIV-2 ANTIBODY + HIV P24 AG PANEL Routine 08/30/2020 7:45 PM CDT from Last 3 Months or Most Recently Relevant to Health Maintenance Results * HIV-1 HIV-2 ANTIBODY + HIV P24 AG PANEL (08/30/2020 7:45 PM CDT) HIV1/2 Ab + P24 Ag Non Reactive Non Reactive 08/30/2020 8:34 PM CDT [facility] Blood BLOOD SPECIMEN / Unknown Lab Venipuncture / Unknown 08/30/2020 7:45 PM CDT 08/30/2020 7:50 PM CDT Narrative [facility] - 08/30/2020 8:34 PM CDT No Laboratory evidence of HIV infection. us Анна Ocampo MD LAB - CHEMISTRY ORDERABLES Final Result [facility] [address] [place], [place] [id number] from Last 3 Months or Most Recently Relevant to Health Maintenance [place] [address] Member Subscriber Plan / Payer (Ef fective for All Dates) Name:Jaxson Crawford Relation to Subscriber:Self Name:AidtiRaúl hobsonJaxson Payer ID:[id number] (NAIC) Type:Medicaid Managed Care Address: [address] SELF PAY NO INSURANCE Member Subscriber Plan / Payer (Ef fective for All Dates) Name:Jaxson Crawford Member ID:Not on file Relation to Subscriber:Not on file Name:JAXSON CRAWFORD Subscriber ID:Not on file Address: [address] [place] [id number] Payer ID:Not on file Group ID:Not on file Type:Self Pay Address: [place], [place] TP [employer] Member Subscriber Plan / Payer (Ef fective 2017-Present) Name:Jaxson Crawford Relation to Subscriber:Self Name:Jaxson Crawford Payer ID:Not on file Group ID:Not on file Type:Third Green Party Liability [id number] Address: [address] [place] [id number] Advance Directives * Full Code (Latest Code Status on File) Date Activated Date Inactivated Comments 08/29/2020 11:03 PM 09/01/2020 1:14 PM
[2024-11-29 13:20] VITALS: BP 119/65; PULSE 83; RESP 19; TEMP 36.8; O2SAT 98
--- NOTE | 2024-11-29 14:48 | ED.GENADULT ---
HPI - General Adult General Chief complaint: Back Pain/Injury Stated complaint: back pain Time Seen by Provider: 11/29/24 14:48 Focused HPI: Joseline Dietrich is a 34 y/o female who presents with reports of having severe right lower back pain that started a week ago, She states that she might of lifted something wrong. Denies any acute urinary symptoms/ no fever chills. GENERAL: Well-appearing, well-nourished, and in no acute distress. HEAD: Normocephalic, atraumatic. CHEST: Clear to auscultation. ?No respiratory distress. HEART: Regular rate and rhythm.? NEURO: ?Alert and oriented x3. Patient screened in triage and initial orders placed.? ?Additional care and disposition to be based upon?diagnostic testing and treatment. History of Present Illness HPI narrative: Focused HPI: Joseline Dietrich is a 34 y/o female who presents with reports of having severe right lower back pain that started a week ago, She states that she might of lifted something wrong. Denies any acute urinary symptoms/ no fever chills. GENERAL: Well-appearing, well-nourished, and in no acute distress. HEAD: Normocephalic, atraumatic. CHEST: Clear to auscultation. ?No respiratory distress. HEART: Regular rate and rhythm.? NEURO: ?Alert and oriented x3. Related Data Allergies Allergy/AdvReac Type Severity Reaction Status Date / Time No Known Allergies Allergy Verified 11/29/24 13:10 Review of Systems Review of Systems: All systems reviewed & are unremarkable except as noted in HPI and below PMFSH Past Medical History Medical History History of kidney infection during Anxiety Surgical History Surgical History H/O bilateral salpingectomy S/P repeat low transverse (~10/03/22) History of primary section [place] teeth removed Family History Family History Grandparent Diabetes mellitus Social History Social History Smoking packs per day: 0.5 Smoking cigarettes per day: 10.0 Years smoked: 16 Smoking pack-years: 8.00 Smoking status: Current every day smoker Tobacco type: cigarettes Second hand tobacco smoke exposure: Yes Alcohol intake: current Alcohol use details: occasionally Substance use: never Substance use type: does not use Do You Feel Safe in your Home?: Yes Lack of Transportation: No Lack of Food: Never True Current Housing: I Have Housing Concerned About Future Housing: No Difficulty Paying Gas/Electric Bills: No Difficulty Paying for Meds: No Currently Unemployed: No Education: High School Diploma/GED Difficulty w/ Childcare or Family Care: No Living arrangements: with family Spiritual care concerns: No Course Vital Signs Vital signs: Vital Signs Temperature 36.8 C 11/29/24 13:20 Pulse Rate 83 11/29/24 13:20 Respiratory Rate 19 11/29/24 13:20 Blood Pressure 119/65 11/29/24 13:20 Pulse Oximetry 98 11/29/24 13:20 Temperature 36.8 C 11/29/24 13:20 Pulse Rate 83 11/29/24 13:20 Respiratory Rate 19 11/29/24 13:20 Blood Pressure 119/65 11/29/24 13:20 Pulse Oximetry 98 11/29/24 13:20 Medical Decision Making MDM Narrative Medical decision making narrative: 34-year-old female who presents today with complaints of having right lower back pain that started about a week ago off and on and getting worse. She denies any urinary symptoms she does have history of kidney stones pain is not midline it is more to the right flank right side. She states the pain does not radiate down her leg at all she has never had pain like this before she denies any acute trauma or known injury but states that she has been doing a lot heavy lifting at work and that could of been contributing some of the pain. On exam she is noted to have right lower back pain no midline lumbar pain Concern for sciatica, muscle strain, ureterolithiasis, bile coming UTI. Plan to check UA and x-ray of lumbar spine-while treating her with ketorolac, cyclobenzaprine and 1 [place] UA is positive for blood X-ray of lumbar spine is negative for acute findings With the blood noted in the UA also checking a CT scan without gone to rule out ureterolithiasis CT scan negative for any acute findings Patient re-evaluated at 5:40 p.m. and pain has much improved she is feeling much better I discussed the results with her out in the waiting room and at with her improvement in stable workup I can discharge her from here if she is comfortable with that plan. At this time she would feel comfortable with that patient will be discharged in stable condition with continuation of ibuprofen 600 t.i.d., cyclobenzaprine t.i.d. p.r.n., and lidocaine patches 12 hours on 12 hours off. Close PCP follow-up recommended strict return precautions provided. Patient denies have any further questions at this time. Medical Records Medical records reviewed: Yes I reviewed the external patient's medical records. Vital Signs Vital Signs: Vital Signs Temperature 36.8 C 11/29/24 13:20 Pulse Rate 83 11/29/24 13:20 Respiratory Rate 19 11/29/24 13:20 Blood Pressure 119/65 11/29/24 13:20 Pulse Oximetry 98 11/29/24 13:20 Temperature 36.8 C 11/29/24 13:20 Pulse Rate 83 11/29/24 13:20 Respiratory Rate 19 11/29/24 13:20 Blood Pressure 119/65 11/29/24 13:20 Pulse Oximetry 98 11/29/24 13:20 vitals reviewed Lab Data Lab results reviewed: Yes I reviewed the patient's lab results. Labs: Lab Results 11/29/24 11/29/24 Range/Units 15:06 15:16 Urine Color Yellow (Yellow) Urine Appearance Clear (Clear) Urine pH 6.5 (5.0-9.0) Ur Specific [place] 1.021 (1.001-1.035) Urine Protein Negative (Negative) mg/dL Urine Glucose (UA) Negative (Negative) mg/dL Urine Ketones Negative (Negative) mg/dL Ur Blood (Man) 1+ H (Negative) Urine Nitrate Negative (Negative) Urine Bilirubin Negative (Negative) Urine Urobilinogen 1.0 (<2.0) mg/dL Leukocyte Esterase Rfl Negative (Negative) ALFONSO/UL Urine RBC 11-20 H (0-2) /hpf Urine WBC 0-5 (0-3) /hpf Ur Squamous Epith Cells None seen (Few) /hpf Urine Bacteria None seen /hpf Urine Casts 0-2 POC Urine HCG, Qual Negative (Negative) Imaging Data Radiologist's impression: Impressions Lumbar Spine X-Ray 11/29/24 15:49 IMPRESSION: Normal lumbar spine. Abdomen/Pelvis CT 11/29/24 16:30 IMPRESSION: No acute abnormality is noted in the abdomen and pelvis. All CT scans at this facility are performed using low dose modulation techniques as appropriate to perform exam including the following: automated exposure control; use of iterative reconstruction technique; adjustment of the mA and/or kV according to patient size (this includes techniques or standardized protocols for targeted exams where dose is matched to indication/reason for exam). Discharge Plan Discharge Clinical Impression: Muscle strain Lower back pain Qualifiers: Chronicity: acute Back pain laterality: right Sciatica presence: without sciatica Qualified Code(s): M54.50 - Low back pain, unspecified Patient Disposition: Home Condition: Stable Instructions: Antibiotic Form, Acute Low Back Pain (ED) Additional Instructions: Please continue to take the ibuprofen 3 times a day for the pain, continues take muscle relaxer cyclobenzaprine up to 3 times a day for pain this may make you drowsy be mindful if you are going to be driving or operating machinery that he may need reserve this medication for bedtime. You may also try the lidocaine patches to the area pain as ordered. Please follow-up with your primary care doctor in the next week if she have any new or worsening symptoms return to the emergency department. Patient Language: Ecuadorean Prescriptions: New cyclobenzaprine 10 mg tablet 10 mg PO TID PRN (Reason: muscle spasm) Qty: 30 0RF ibuprofen 600 mg tablet 600 mg PO TID PRN (Reason: pain) Qty: 30 0RF lidocaine 5 % adhesive patch,medicated 1 patch topical DAILY Qty: 30 0RF Rx Instructions: leave on most painful area for up to 12 hrs Follow-up/Referrals: UNKNOWN,DOCTOR [Non-Staff] Stand Alone Forms: Work/School Release IP Time of Disposition: 17:37
[2024-11-29] MEDS: CYCLOBENZAPRINE HCL 10 MG TABLET PO (15:13)
[2024-11-29] MEDS: KETOROLAC 30 MG/ML VIAL (*BKC) IM (15:13)
[2024-11-29] MEDS: HYDROcodone/acetaminophen (*CRX) 5-325 MG TABLET 1 TAB PO (15:13)
[2024-11-29 15:18] LABS: BEDSIDEPREGUCG Negative (Negative)
[2024-11-29 15:26] LABS: Add Urine Microscopic? YES; Appearance Urine Clear (Clear); Glucose Urine UA Negative (Negative); Leukocyte Esterase Ur Negative LEU/UL (Negative); Nitrate Urine Negative (Negative); Non Pathogenic Casts 0-2; Specific Grav Ur 1.021 (1.001-1.035)
--- OUTSIDE RECORDS SUMMARY | 2024-11-29 17:52 | XMS_ITS | Clinical Summary ---
Author Organization [facility] Address [address] [place], [place] [address] Phone Care Team Providers Care Clinical Applications Manager Name Role Phone Unavailable Primary Care Provider [...] on file Legal Sex Female 5:56 AM [employer]ENATAL [employer]SEL[employer] Gender Identity Not on file Sexual Orientation [...]
== END 2024-11-29 17:56 | disposition home or self-care (01) ==
LOC: ANHED 17:49
PROVIDERS: Emergency Provider Nurse Practitioner Family
DX: S39.012A Strain of muscle, fascia and tendon of lower back, initial encounter (principal); F17.210 Nicotine dependence, cigarettes, uncomplicated; Z90.79 Acquired absence of other genital organ(s); X50.0XXA Overexertion from strenuous movement or load, initial encounter
CPT/HCPCS: 72100; 74176; 81001; 81025; 96372; 99284; A9270; J1885